=== PATIENT | male | born 1955 | race Caucasian/White ===

== ENCOUNTER 2016-09-28 16:41 | Emergency (ER) | payer MEDICARE, MEDICAID, SELFPAY | END 2016-09-28 17:28 | disposition home or self-care (01) | PROVIDERS: Emergency Provider Emergency Medicine; Family Provider Family Medicine Geriatric Medicine; Visit Provider Emergency Medicine | DX: M79.1 Myalgia (principal); E11.9 Type 2 diabetes mellitus without complications; Z79.4 Long term (current) use of insulin | CPT/HCPCS: 84484; 93005; 93041; 99282 ==

== ENCOUNTER 2017-04-12 17:56 | Emergency (ER) | payer MEDICARE, MEDICAID, SELFPAY | END 2017-04-12 19:42 | disposition home or self-care (01) | PROVIDERS: Emergency Provider Emergency Medicine; Family Provider Family Medicine Geriatric Medicine; Visit Provider Emergency Medicine | DX: J01.00 Acute maxillary sinusitis, unspecified (principal); H10.403 Unspecified chronic conjunctivitis, bilateral; I10 Essential (primary) hypertension; J44.9 Chronic obstructive pulmonary disease, unspecified; K21.9 Gastro-esophageal reflux disease without esophagitis; E11.9 Type 2 diabetes mellitus without complications; Z79.4 Long term (current) use of insulin; F41.8 Other specified anxiety disorders; Z72.0 Tobacco use | CPT/HCPCS: 96372; 99282; J2405 ==

== ENCOUNTER 2017-05-12 21:07 | Emergency (ER) | payer MEDICARE, MEDICAID, SELFPAY | END 2017-05-13 00:07 | disposition home or self-care (01) | PROVIDERS: Emergency Provider Emergency Medicine; Family Provider Family Medicine Geriatric Medicine; Visit Provider Emergency Medicine | DX: R07.89 Other chest pain (principal); N28.9 Disorder of kidney and ureter, unspecified; F17.210 Nicotine dependence, cigarettes, uncomplicated; F41.9 Anxiety disorder, unspecified; F32.9 Major depressive disorder, single episode, unspecified; N40.0 Benign prostatic hyperplasia without lower urinary tract symptoms; E11.9 Type 2 diabetes mellitus without complications; K21.9 Gastro-esophageal reflux disease without esophagitis; J44.9 Chronic obstructive pulmonary disease, unspecified; E78.5 Hyperlipidemia, unspecified; I10 Essential (primary) hypertension; Z79.01 Long term (current) use of anticoagulants; Z86.718 Personal history of other venous thrombosis and embolism; Z79.4 Long term (current) use of insulin; Z86.711 Personal history of pulmonary embolism; Z90.5 Acquired absence of kidney; Z85.46 Personal history of malignant neoplasm of prostate; Z85.528 Personal history of other malignant neoplasm of kidney; Z85.51 Personal history of malignant neoplasm of bladder; Z79.891 Long term (current) use of opiate analgesic; Z79.51 Long term (current) use of inhaled steroids; Z79.899 Other long term (current) drug therapy | CPT/HCPCS: 71010; 80053; 82550; 82553; 84484; 85025; 85610; 85730; 93005; 96374; 96375; 99284 ==

== ENCOUNTER → 2017-05-23 | Outpatient (POV) | payer MEDICARE, MEDICAID, SELFPAY | PROVIDERS: Visit Provider Internal Medicine | DX: R07.9 Chest pain, unspecified (principal); I10 Essential (primary) hypertension; I25.10 Atherosclerotic heart disease of native coronary artery without angina pectoris; E78.5 Hyperlipidemia, unspecified; N18.9 Chronic kidney disease, unspecified; R53.83 Other fatigue; R42 Dizziness and giddiness; R06.00 Dyspnea, unspecified; R94.31 Abnormal electrocardiogram [ECG] [EKG]; I45.10 Unspecified right bundle-branch block | CPT/HCPCS: 93005 ==

== ENCOUNTER → 2017-06-01 | Outpatient (CLI) | payer MEDICARE, MEDICAID, SELFPAY | PROVIDERS: Visit Provider Internal Medicine | DX: R06.02 Shortness of breath (principal); R07.9 Chest pain, unspecified; I25.10 Atherosclerotic heart disease of native coronary artery without angina pectoris; Z86.711 Personal history of pulmonary embolism; Z86.718 Personal history of other venous thrombosis and embolism | CPT/HCPCS: 36415; 71250; 82565; 84520 ==

== ENCOUNTER 2017-09-24 15:37 | Emergency (ER) | payer MEDICARE, MEDICAID, SELFPAY ==
[2017-09-24 15:39] VITALS: BP 147/84; PULSE 76; PULSE 79; RESP 22; TEMP 36.7; O2SAT 96; BMI 36.2
--- NOTE | 2017-09-24 15:45 | XR_ITS ---
XR chest 2V Ordering Physician: Michael Lindquist MD Patient Age: 62 years: Male HISTORY: ITS.REASON: soa TECHNIQUE: PA and lateral chest COMPARISON :Previous chest film 06/10/2015 & March 2015 FINDINGS Nothing definitely acute. Mild chronic changes bilaterally most evident towards right base. Mild elevation right hemidiaphragm with mild chronic changes most evident at the right base similar to 2015 when differences in technique are considered Heart, aleisha and mediastinal structures stable minimal scarring at the left suprahilar region. Prominent marginal osteophyte mid T-spine accounts for the appearance at this region on lateral view. No pneumothorax no pleural effusion no acute findings. Pulmonary vascularity normal. IMPRESSION: Nothing definitely acute. Stable chest with mild chronic changes
--- NOTE | 2017-09-24 15:45 | [facility]H.EDSOB ---
ED Disposition Clinical Impression: COPD (chronic obstructive pulmonary disease), Tobacco abuse, CAD (coronary artery disease), Diabetes, Renal insufficiency, Chronic renal failure, Leg edema Disposition: Home, Self-Care Condition on Discharge: Fair Additional Instructions: 1- stop smoking. 2- use combivent inhaler. 3- start seeing Dr Snell the refinery operator helper cracking unit. 4- return if not better. 5- see Dr James in AM for a final x ray report and a recheck. 6- resuime lasix 40 mg as we discussed . 7- follow up with the director equipment. Prescriptions: Ipratropium/Albuterol Sulfate [Combivent Respimat Inh] 1 puff IH Q12 #1 inh Referrals: Purvi James [Primary Care Provider] - - Critical Care Critical Care Time: No Attestation: On , the high probability of a clinically significant, sudden or life threatening deterioration of the following system(s) required my full and direct attention, intervention and personal management. The time I documented below is in addition to time spent performing reported procedures but includes the following listed in this critical care notation. Medical Decision Making Vital Signs: 09/24/17 15:39 09/24/17 15:54 09/24/17 17:46 Temperature 98.1 F Temperature Source Oral Pulse Rate 76 89 Pulse Rate [Right Radial] 76 Respiratory Rate 22 Blood Pressure [Right Arm] 147/84 Blood Pressure Mean [Right Arm] 105 Blood Pressure Source [Right Arm] Automatic Cuff Blood Pressure Position [Right Arm] Sitting 02 Sat by Pulse Oximetry 96 - Lab Data Lab Results 09/24/17 15:52: WBC 5.1, RBC 4.38 L, Hgb 13.5 L, Hct 40.0 L, MCV 91.3, MCH 30.8, MCHC 33.7, RDW 13.4, Plt Count 104 L, MPV 8.9, Neut % (Auto) 69.9, Lymph % (Auto) 18.9, [place] % (Auto) 7.6, Eos % (Auto) 2.9, Baso % (Auto) 0.7, Neut # (Auto) 3.6, Lymph # (Auto) 1.0, [place] # (Auto) 0.4, Eos # (Auto) 0.2, Baso # (Auto) 0.0 09/24/17 15:52: Sodium 139, Potassium 4.5, Chloride 107, Carbon Dioxide 27, Anion Gap 9.5, BUN 17, Creatinine 2.54 H, Estimated Creat Clear 55, Estimated GFR 26 L, Est GFR ( Amer) 31 L, Glucose 148 H, Calcium 7.9 L, Total Bilirubin 0.4, AST 7 L, ALT 20, Alkaline Phosphatase 46, Troponin I < 0.02, Total Protein 6.0 L, Albumin 2.6 L, Globulin 3.4 H, Albumin/Globulin Ratio 0.8 L 09/24/17 15:52: B-Natriuretic Peptide 210 H Result diagrams: 09/24/17 15:52 09/24/17 15:52 Orders (Tests/Meds): ED MEDICATIONS Discontinued Medications Generic Name Dose Route Start Last Admin Trade Name Freq PRN Reason Stop Dose Admin Albuterol/Ipratropium 3 ml 09/24/17 16:00 09/24/17 15:52 Duoneb 3ml Neb IH 10/24/17 15:59 3 ml Q1H ALBERTO Administration Furosemide 20 mg 09/24/17 17:43 09/24/17 17:51 Lasix 20mg/2ml Vial IV 09/24/17 17:44 20 mg ONCE ONE Administration Methylprednisolone Sodium Succinate 125 mg 09/24/17 15:50 09/24/17 16:15 Solu-Medrol 125mg/2ml Vial IV 09/24/17 15:51 125 mg ONCE ONE Administration ORDERS Category Date Time Status XR chest 2V Stat Exams 09/24/17 15:45 Taken - Radiology Data #1 Image(s): Chest Image Reviewed: Yes I reviewed the patient's radiology image Preliminary Findings: Abnormal (Pulmonary vascular congestion. ) - Fabián Inquiry Pt receiving controlled substance: No Fabián was queried for this patient: No Resp/SOB HPI - General Stated Complaint: SOA - History of Present Illness 62 years old 40 years smoker with history of diabetes and coronary artery disease. He developed upper respiratory tract infection in the form of runny nose and a nonproductive cough. He presented to the ED with 2 days history of shortness of breath with no chest pain no palpitations no nausea or vomiting. He denies having fever or chills. He is on xalerto for anticoagulation. Patient reports out of Lasix and has not taken his medications lately. The patient thought that he ran out of Lasix I reviewed his medication and he
--- NOTE | 2017-09-24 15:48 | ED_ITS ---
ED Disposition Clinical Impression: COPD (chronic obstructive pulmonary disease), Tobacco abuse, CAD (coronary artery disease), Diabetes, Renal insufficiency, Chronic renal failure, Leg edema Disposition: Home, Self-Care Condition on Discharge: Fair Additional Instructions: 1- stop smoking. 2- use combivent inhaler. 3- start seeing Dr Snell the assistant signal maintainer. 4- return if not better. 5- see Dr James in AM for a final x ray report and a recheck. 6- resuime lasix 40 mg as we discussed . 7- follow up with the fuel tank sealer and tester. Prescriptions: Ipratropium/Albuterol Sulfate [Combivent Respimat Inh] 1 puff IH Q12 #1 inh Referrals: Purvi James [Primary Care Provider] - - Critical Care Critical Care Time: No Attestation: On , the high probability of a clinically significant, sudden or life threatening deterioration of the following system(s) required my full and direct attention, intervention and personal management. The time I documented below is in addition to time spent performing reported procedures but includes the following listed in this critical care notation. Medical Decision Making Vital Signs: 09/24/17 15:39 09/24/17 15:54 09/24/17 17:46 Temperature 98.1 F Temperature Source Oral Pulse Rate 76 89 Pulse Rate [Right Radial] 76 Respiratory Rate 22 Blood Pressure [Right Arm] 147/84 Blood Pressure Mean [Right Arm] 105 Blood Pressure Source [Right Arm] Automatic Cuff Blood Pressure Position [Right Arm] Sitting 02 Sat by Pulse Oximetry 96 - Lab Data Lab Results 09/24/17 15:52: WBC 5.1, RBC 4.38 L, Hgb 13.5 L, Hct 40.0 L, MCV 91.3, MCH 30.8 , MCHC 33.7, RDW 13.4, Plt Count 104 L, MPV 8.9, Neut % (Auto) 69.9, Lymph % ( Auto) 18.9, [place] % (Auto) 7.6, Eos % (Auto) 2.9, Baso % (Auto) 0.7, Neut # (Auto ) 3.6, Lymph # (Auto) 1.0, [place] # (Auto) 0.4, Eos # (Auto) 0.2, Baso # (Auto) 0.0 09/24/17 15:52: Sodium 139, Potassium 4.5, Chloride 107, Carbon Dioxide 27, Anion Gap 9.5, BUN 17, Creatinine 2.54 H, Estimated Creat Clear 55, Estimated GFR 26 L, Est GFR ( Amer) 31 L, Glucose 148 H, Calcium 7.9 L, Total Bilirubin 0.4, AST 7 L, ALT 20, Alkaline Phosphatase 46, Troponin I < 0.02, Total Protein 6.0 L, Albumin 2.6 L, Globulin 3.4 H, Albumin/Globulin Ratio 0.8 L 09/24/17 15:52: B-Natriuretic Peptide 210 H Result diagrams: 09/24/17 15:52 09/24/17 15:52 Orders (Tests/Meds): ED MEDICATIONS Discontinued Medications Generic Name Dose Route Start Last Admin Trade Name Freq PRN Reason Stop Dose Admin Albuterol/Ipratropium 3 ml 09/24/17 16:00 09/24/17 15:52 Duoneb 3ml Neb IH 10/24/17 15:59 3 ml Q1H ALBERTO Administration Furosemide 20 mg 09/24/17 17:43 09/24/17 17:51 Lasix 20mg/2ml Vial IV 09/24/17 17:44 20 mg ONCE ONE Administration Methylprednisolone Sodium Succinate 125 mg 09/24/17 15:50 09/24/17 16:15 Solu-Medrol 125mg/2ml Vial IV 09/24/17 15:51 125 mg ONCE ONE Administration ORDERS Category Date Time Status XR chest 2V Stat Exams 09/24/17 15:45 Taken - Radiology Data #1 Image(s): Chest Image Reviewed: Yes I reviewed the patient's radiology image Preliminary Findings: Abnormal (Pulmonary vascular congestion. ) - Fabián Inquiry Pt receiving controlled substance: No
[2017-09-24 15:54] VITALS: PULSE 74; PULSE 76
--- NOTE | 2017-09-24 15:58 | PC.NURSE ---
rt at bedside giving breathing treatment
[2017-09-24 16:08] LABS: Basophils % 0.7 % (0.1-2.0); Eosinophils # 0.2 K/mm3 (0.0-0.4); Eosinophils % 2.9 % (0.1-12.0); Hemoglobin 13.5 g/dL (14.1-18.0); Lymphocytes % 18.9 K/mm3 (10-50); Mean Corpuscular HGB Conc 33.7 g/dL (31.8-35.4); Mean Corpuscular Hemoglobin 30.8 pg (27.0-31.2); Mean Corpuscular Volume 91.3 fl (80-94); Mean Platelet Volume 8.9 fl (7.4-10.4); Monocytes # 0.4 K/mm3 (0.1-1.0); Monocytes % 7.6 % (1.7-9.3); Neutrophils # 3.6 K/mm3 (1.8-7.8); Neutrophils % 69.9 % (37.0-80.0); Platelet Count 104 K/mm3 (142-424); Red Blood Count 4.38 M/mm3 (4.60-6.20); Red Cell Distribution Width 13.4 % (11.5-17.5); White Blood Count 5.1 K/mm3 (4.8-10.8)
[2017-09-24 16:18] LABS: Alanine Aminotransferase 20 U/L (12-78); Albumin Level 2.6 gm/dL (3.4-5.0); Albumin/Globulin Ratio 0.8 (1.1-1.8); Alkaline Phosphatase 46 U/L (46-116); Anion Gap 9.5 mEq/L (5-15); Aspartate Amino Transferase 7 U/L (15-37); Bilirubin,Total 0.4 mg/dL (0.2-1.0); Blood Urea Nitrogen 17 mg/dL (7-18); Calcium 7.9 mg/dL (8.5-10.1); Carbon Dioxide 27 mmol/L (21.0-32.0); Chloride 107 mmol/L (98-107); Creatinine Clearance Estimated 55 mL/min (0-300); Creatinine,Serum 2.54 mg/dL (0.70-1.30); Estimated Glomerular Filt Rate 26 ml/min (>60); GFR (African American) 31 ML/MIN (>60); Globulin 3.4 gm/dl (1.3-3.2); Glucose 148 mg/dL (74-106); Potassium 4.5 mmoL/L (3.5-5.1); Sodium 139 mmol/L (136-145); Troponin I < 0.02 ng/ml (0.00-0.06)
[2017-09-24 17:46] VITALS: PULSE 88; PULSE 89
[2017-09-24 18:13] VITALS: BP 147/84; PULSE 76; RESP 20; TEMP 36.8; O2SAT 98
== END 2017-09-24 18:20 | disposition home or self-care (01) ==
PROVIDERS: Emergency Provider Emergency Medicine; PCP Family Medicine Geriatric Medicine
DX: J44.9 Chronic obstructive pulmonary disease, unspecified (principal); F17.210 Nicotine dependence, cigarettes, uncomplicated; I25.10 Atherosclerotic heart disease of native coronary artery without angina pectoris; E11.9 Type 2 diabetes mellitus without complications; N28.9 Disorder of kidney and ureter, unspecified; R60.0 Localized edema; I10 Essential (primary) hypertension; E78.5 Hyperlipidemia, unspecified; F32.9 Major depressive disorder, single episode, unspecified; Z79.899 Other long term (current) drug therapy
CPT/HCPCS: 71046; 80053; 83880; 84484; 85025; 96374; 96375; 99283

== ENCOUNTER 2018-03-20 14:45 | Inpatient (IN) ==
--- NOTE | 2018-03-20 14:54 | Emergency Department Note ---
ED Disposition Clinical Impression: Dehydration, Generalized weakness Disposition: Still a Patient Condition on Discharge: Fair Referrals: Purvi James [Primary Care Provider] - - Critical Care Critical Care Time: No Attestation: On , the high probability of a clinically significant, sudden or life threatening deterioration of the following system(s) required my full and direct attention, intervention and personal management. The time I documented below is in addition to time spent performing reported procedures but includes the following listed in this critical care notation. Medical Decision Making - Fabián Inquiry Pt receiving controlled substance: No Vital Signs: 03/20/18 14:54 03/20/18 15:04 03/20/18 15:08 Temperature 98.7 F Temperature Source Oral Pulse Rate [Left Radial] 71 75 Pulse Rate [Orthostatic Lying Right Radial] 71 Pulse Rate [Orthostatic Sitting Right Radial] 72 Respiratory Rate 20 20 Blood Pressure [Orthostatic Lying Right Arm] 106/64 Blood Pressure [Orthostatic Sitting Right Arm] 113/64 Blood Pressure [Right Arm] 107/60 118/64 Blood Pressure Mean [Right Arm] 75 82 Blood Pressure Source [Right Arm] Automatic Cuff Automatic Cuff Blood Pressure Position [Right Arm] Sitting Sitting 02 Sat by Pulse Oximetry 96 96 Oxygen Delivery Method Room Air 03/20/18 16:11 Temperature Temperature Source Pulse Rate [Left Radial] 69 Pulse Rate [Orthostatic Lying Right Radial] Pulse Rate [Orthostatic Sitting Right Radial] Respiratory Rate 20 Blood Pressure [Orthostatic Lying Right Arm] Blood Pressure [Orthostatic Sitting Right Arm] Blood Pressure [Right Arm] 104/61 Blood Pressure Mean [Right Arm] 75 Blood Pressure Source [Right Arm] Automatic Cuff Blood Pressure Position [Right Arm] Sitting 02 Sat by Pulse Oximetry 96 Oxygen Delivery Method - Lab Data Lab Results 03/20/18 15:00: WBC 6.8, RBC 3.77 L, Hgb 11.6 L, Hct 33.9 L, MCV 89.8, MCH 30.8 , MCHC 34.3, RDW 14.3, Plt Count 161, MPV 7.9, Neut % (Auto) 74.7, Lymph % (Auto ) 16.3, [place] % (Auto) 5.9, Eos % (Auto) 2.4, Baso % (Auto) 0.8, Neut # (Auto) 5.1, Lymph # (Auto) 1.1, [place] # (Auto) 0.4, Eos # (Auto) 0.2, Baso # (Auto) 0.1 03/20/18 15:00: Sodium 141, Potassium 4.6, Chloride 107, Carbon Dioxide 23, Anion Gap 15.6 H, BUN 45 H, Creatinine 4.96 H, Estimated Creat Clear 26, Estimated GFR 12 L*, Est GFR ( Amer) 14 L*, Glucose 133 H, Calcium 7.9 L , Troponin I < 0.02 Result diagrams: 03/20/18 15:00 03/20/18 15:00 Orders (Tests/Meds): ED MEDICATIONS Generic Name Dose Route Start Last Admin Trade Name Freq PRN Reason Stop Dose Admin Sodium Chloride 1,000 mls @ 100 mls/hr 03/20/18 15:45 03/20/18 16:10 Sod Chlor 0.9% 1000ml Bag IV 04/19/18 15:44 100 mls/hr .Q10H ALBERTO Administration Discontinued Medications Generic Name Dose Route Start Last Admin Trade Name Freq PRN Reason Stop Dose Admin Sodium Chloride 500 ml 03/20/18 15:41 03/20/18 15:57 Sod Chlor 0.9% 1000ml Bag IV 03/20/18 15:42 500 ml BOLUS ONE Administration ORDERS Category Date Time Status ECG Request by /Nse Stat Y 03/20/18 15:04 Ordered - Radiology Data #1 Image(s): Chest Image Reviewed: Yes I have reviewed radiologist's interpretation Preliminary Findings: Normal/NAD - ECG Data Tracing #1 EKG interpreted by Aakash Blackmon MD: Rhythm: sinus Rate: 72 [place]: normal Ectopy: none Conduction: normal ST Segment Changes: none T Wave Changes: none Q Waves: none No evidence of acute ischemia or injury Normal electrocardiogram - Physician Consults Physician Consulted: Davy Time: 16:10 Reason -: Admission Comment/Response: Agrees to admit the patient to the hospital. We discussed the patient's clinical information, including history, exam, laboratory and radiology results and ED course. Per hospital procedure, I will write temporary bridge inpatient orders on the patient. Specific orders requested by the admitting physician: Hydration, recheck chemistry profile in the morning General Adult HPI - General Stated complaint: dizzy Time Seen by Provider: 03/20/18 15:06 - History of Present Illness HPI narrative: Patient states that since awakening this morning he feels generally weak with no strength in his legs when he tries to stand up. He says that he gets dizzy and sees spots. Sometimes are worse with standing. He says he went to the eye doctor for a routine scheduled visit but did not stay to be examined because of his symptoms. He denies any pain including headache, chest pain, abdominal pain , back pain. States he has not recently been ill. No fever, vomiting, diarrhea , cough. No recent changes in his medications. States he was seen here for the same symptoms a couple of months ago and saw Dr. Bhatti, no cause found. - Related Data Home Medications Medication Instructions Recorded Confirmed amlodipine 10 mg tablet 10 mg PO QDAY 09/04/17 03/20/18 aspirin 81 mg tablet,delayed 81 mg PO QDAY 09/04/17 03/20/18 release carvedilol 25 mg tablet 25 mg PO BID 09/04/17 03/20/18 fluticasone 250 mcg-salmeterol 50 1 inh INHALATION BID each 09/04/17 03/20/18 mcg/dose blistr powdr for inhalation omeprazole 40 mg capsule,delayed 40 mg PO QDAY 09/04/17 03/20/18 release ranitidine 150 mg capsule 300 mg PO QDAY cap 09/04/17 03/20/18 Ergocalciferol (Vitamin D2) 50,000 unit PO DAILY 09/24/17 03/20/18 [Vitamin D2] Furosemide [Furosemide 40MG tAB] 40 mg PO DAILY 09/24/17 03/20/18 Propranolol HCl [Inderal 20mg 20 mg PO DAILY 09/24/17 03/20/18 tablet] Gabapentin [Gabapentin 300mg Cap] 300 mg PO DAILY 01/26/18 03/20/18 Hydralazine HCl [Hydralazine HCl 50 mg PO DAILY 01/26/18 03/20/18 25mg Tablet] Insulin Aspart [Novolog Flexpen] 100 unit SQ DAILY 01/26/18 03/20/18 Insulin Detemir [Levemir 100 30 unit SQ DAILY 01/26/18 03/20/18 units/mL 10mL vial] Lactobacillus Acidophilus 1 each PO DAILY 01/26/18 03/20/18 [Acidophilus Lactobacilli] Oxycodone HCl [Oxycodone (IR) 10mg 10 mg PO Q6 01/26/18 03/20/18 Tab] Pantoprazole Sodium [Pantoprazole 40 mg PO DAILY 01/26/18 03/20/18 20mg Tab] Ranolazine [Ranexa 500mg ER tablet] 1,000 mg PO DAILY 01/26/18 03/20/18 Rivaroxaban [Xarelto 10mg tablet] 10 mg PO DAILY 01/26/18 03/20/18 Valacyclovir HCl [Valacyclovir] 500 mg PO BID 01/26/18 03/20/18 Venlafaxine HCl [Venlafaxine HCl 75 mg PO DAILY 01/26/18 03/20/18 ER] Ipratropium/Albuterol Sulfate 1 puff IH Q12 02/13/18 03/20/18 [Combivent Respimat Inh] Previous Rx's Medication Instructions Recorded ranolazine ER 1,000 mg 1,000 mg PO BID #60 tab 11/07/17 tablet,extended release,12 hr isosorbide mononitrate ER 120 mg 120 mg PO DAILY #30 tab 03/09/18 tablet,extended release 24 hr Allergies Allergy/AdvReac Type Severity Reaction Status Date / Time No Known Allergies Allergy Verified 02/13/18 07:22 [facility] History I have reviewed the patient's past medical history: Yes Medical History: Reports:: Cancer, Chronic Obstructive Pulmonary Disease (COPD) , Coronary Artery Disease, Depression, Diabetes Mellitus Type 2, Hyperlipidemia , Hypertension, Lung Disease (COPD) Denies:: Diabetes Mellitus Type 1, Internal Pacemaker, Seizures Laterality Cases: Left: Other, Right: Arthroscopy Shoulder Other Surgeries: Yes: Other (Back Sx, LHC-2 stents, R kidney removed, Partial L kidney removed). No: Pacemaker - Social History Smoking Status: Current every day smoker Tobacco Type: cigarettes # Packs/Day (cigarettes): 2 Alcohol Intake: former Alcohol Intake Frequency:: 3 or more drinks per day - Psychiatric History Pschychiatric History:: Reports:: Depression Family Hx:: Heart Attack, Coronary Artery Disease ROS Obtained: Yes All systems reviewed & no additional complaints - Constitutional Constitutional: Reports fatigue, Denies fever(s), Denies poor appetite, Reports weakness - Eyes Eyes: Reports as per HPI - Cardiovascular Cardiovascular: Denies chest pain - Respiratory Respiratory: No cough, No dyspnea - Gastrointestinal Gastrointestingal: Denies: abdominal pain, diarrhea, vomiting - Musculoskeletal Musculoskeletal: Denies back pain, Denies neck pain - Neurologic Neurologic: Denies headache(s), Reports weakness (Generalized) Physical Exam - General General appearance: alert, in no apparent distress - Head Head exam: atraumatic, normocephalic, normal inspection - Eye Eye exam: Present: normal appearance, PERRL, EOMI - ENT ENT exam: Present: normal exam, normal oropharynx, mucous membranes moist, TM's normal bilaterally, normal external ear exam - Neck Neck exam: Present: normal inspection, full ROM, trachea midline. Absent: meningismus, lymphadenopathy - Chest Chest inspection: Present: normal inspection, symmetric chest wall rise. Absent : tenderness - Respiratory Respiratory exam: Present: normal lung sounds bilaterally. Absent: respiratory distress - Cardiovascular Cardiovascular exam: Present: regular rate, normal rhythm. Absent: JVD - Abdominal Exam Abdominal exam: Present: soft, normal bowel sounds. Absent: distention, tenderness, guarding - Extremities Exam Extremities exam: Present: normal inspection, full ROM, normal capillary refill. Absent: calf tenderness - Back Exam Back exam: Present: normal inspection. Absent: tenderness - Neurological Exam Neurological exam: Present: alert, oriented X3, CN II-XII intact. Absent: motor sensory deficit - Psychiatric Psychiatric exam: Present: normal affect, normal mood - Skin Skin exam: Present: warm, dry, intact, normal color
[2018-03-20 15:20] LABS: Basophils # 0.1 K/mm3 (0-0.2); Basophils % 0.8 % (0.1-2.0); Eosinophils # 0.2 K/mm3 (0.0-0.4); Eosinophils % 2.4 % (0.1-12.0); Hematocrit 33.9 % (42.0-52.0); Hemoglobin 11.6 g/dL (14.1-18.0); Lymphocytes # 1.1 K/mm3 (0.7-4.5); Lymphocytes % 16.3 K/mm3 (10-50); Mean Corpuscular HGB Conc 34.3 g/dL (31.8-35.4); Mean Corpuscular Hemoglobin 30.8 pg (27.0-31.2); Mean Corpuscular Volume 89.8 fl (80-94); Mean Platelet Volume 7.9 fl (7.4-10.4); Monocytes # 0.4 K/mm3 (0.1-1.0); Monocytes % 5.9 % (1.7-9.3); Neutrophils # 5.1 K/mm3 (1.8-7.8); Neutrophils % 74.7 % (37.0-80.0); Platelet Count 161 K/mm3 (142-424); Red Blood Count 3.77 M/mm3 (4.60-6.20); Red Cell Distribution Width 14.3 % (11.5-17.5); White Blood Count 6.8 K/mm3 (4.8-10.8)
[2018-03-20 15:30] LABS: Anion Gap 15.6 mEq/L (5-15); Blood Urea Nitrogen 45 mg/dL (7-18); Calcium 7.9 mg/dL (8.5-10.1); Carbon Dioxide 23 mmol/L (21.0-32.0); Chloride 107 mmol/L (98-107); Glucose 133 mg/dL (74-106); Potassium 4.6 mmoL/L (3.5-5.1); Sodium 141 mmol/L (136-145)
[2018-03-21 06:08] LABS: Anion Gap 9.7 mEq/L (5-15); Calcium 7.4 mg/dL (8.5-10.1); Potassium 4.7 mmoL/L (3.5-5.1)
--- NOTE | 2018-03-21 07:19 | Pharmacy Consult Notes ---
[facility] Pharmacy VTE Monitoring - Patient Demographics Admission date: 03/20/18 Report Date: 03/21/18 Time: 07:19 Allergies/Adverse Reactions: Patient Allergies No Known Allergies Allergy (Verified 02/13/18 07:22) Height: 1.91 m Weight: 133.101 kg Patient Problems: Current Active Problems Dehydration (Acute) Generalized weakness (Acute) - VTE Risk Labs: VTE Related Lab Results Hgb 11.6 g/dL (14.1-18.0) L 03/20/18 15:00 Hct 33.9 % (42.0-52.0) L 03/20/18 15:00 Plt Count 161 K/mm3 (142-424) 03/20/18 15:00 BUN 44 mg/dL (7-18) H 03/21/18 05:15 Creatinine 4.87 mg/dL (0.70-1.30) H 03/21/18 05:15 Estimated Creat Clear 29 mL/min (0-300) 03/21/18 05:15 - Prophylaxis VTE Prophylaxis Ordered?: Yes Types of VTE Prophylaxis: TEDS Knee High, Pharmacological Location of Applied Device: Bilateral Lower Extremeties Pharmacologic Type: Other (XARELTO) - VTE Diagnosis Confirmed Treatment or plan recommended: Continue Current Treatment
--- NOTE | 2018-03-21 09:22 | History & Physical Report ---
*Admission Date: 03/20/18 *Chief complaint: dizzyness *History of present illness: this wm with acute onset of dizzyness and dec use of upper ext and was seen in the ed tient states that since awakening this morning he feels generally weak with no strength in his legs when he tries to stand up. He says that he gets dizzy and sees spots. Sometimes are worse with standing. He says he went to the eye doctor for a routine scheduled visit but did not stay to be examined because of his symptoms. He denies any pain including headache, chest pain, abdominal pain, back pain. States he has not recently been ill. No fever, vomiting, diarrhea, cough. No recent changes in his medicati [facility] History I have reviewed the patient's past medical history: Yes Medical History: Reports:: Cancer, Chronic Obstructive Pulmonary Disease (COPD) , Coronary Artery Disease, Depression, Diabetes Mellitus Type 2, Hyperlipidemia , Hypertension, Lung Disease (COPD) Denies:: Diabetes Mellitus Type 1, Internal Pacemaker, Seizures Laterality Cases: Left: Other, Right: Arthroscopy Shoulder Other Surgeries: Yes: Other (Back Sx, LHC-2 stents, R kidney removed, Partial L kidney removed). No: Pacemaker - *Social History Smoking Status: Current every day smoker Tobacco Type: cigarettes # Packs/Day (cigarettes): 1 Alcohol Intake: never Alcohol Intake Frequency:: 3 or more drinks per day Occupational Status: disabled - Psychiatric History Expresses thoughts of harming self/others: None Suicide Plan Description: No Plan Pschychiatric History:: Reports:: Depression *Family Hx:: Heart Attack, Coronary Artery Disease Review of Systems - Review of Systems Review of systems:: pertinent systems reviewed and negative unless documented below - Constitutional Denies fever(s) - Eyes Denies change in vision - ENT Denies sore throat - *Cardiovascular Reports chest pain - *Respiratory Denies cough, Denies coughing up blood - *Gastrointestinal Denies abdominal pain - *Genitourinary Denies blood in urine - *Musculoskeletal Reports joint pain - Integumentary/Breasts Denies rash - *Neurologic Reports tingling, Reports weakness (Generalized), Denies headache(s) - Psychiatric Denies anxiety Meds Home Medications Medication Instructions Recorded Confirmed Type amlodipine 10 mg tablet 10 mg PO DAILY 09/04/17 03/21/18 History carvedilol 25 mg tablet 25 mg PO BID 09/04/17 03/20/18 History Ergocalciferol (Vitamin D2) 50,000 unit PO WEEKLY 09/24/17 03/21/18 History [Vitamin D2] Furosemide [Furosemide 40MG tAB] 40 mg PO DAILY 09/24/17 03/20/18 History Propranolol HCl [Inderal 20mg 20 mg PO BID 09/24/17 03/21/18 History tablet] Gabapentin [Gabapentin 300mg Cap] 300 mg PO BID 01/26/18 03/21/18 History Hydralazine HCl [Hydralazine HCl 50 mg PO TID 01/26/18 03/21/18 History 25mg Tablet] Insulin Aspart [Novolog Flexpen] 0 unit SQ DAILY 01/26/18 03/21/18 History Insulin Detemir [Levemir 100 30 unit SQ DAILY 01/26/18 03/20/18 History units/mL 10mL vial] Lactobacillus Acidophilus 1 each PO DAILY 01/26/18 03/20/18 History [Acidophilus Lactobacilli] Pantoprazole Sodium [Pantoprazole 40 mg PO DAILY 01/26/18 03/20/18 History 20mg Tab] Ranolazine [Ranexa 500mg ER tablet] 1,000 mg PO BID 01/26/18 03/21/18 History Venlafaxine HCl [Venlafaxine HCl 75 mg PO DAILY 01/26/18 03/20/18 History ER] Acetaminophen 650 mg PO Q4HP PRN 03/21/18 03/21/18 History Albuterol Sulfate [Albuterol HFA 2 puffs IH Q4HP PRN 03/21/18 03/21/18 History Inhaler] Aspirin [Aspirin 81mg chewable 81 mg PO DAILY 03/21/18 03/21/18 History tab] Calcitriol [Calcitriol 0.25mcg 0.25 mcg PO MOWEFR 03/21/18 03/21/18 History Capsule] Cyclobenzaprine HCl 10 mg PO BIDP PRN 03/21/18 03/21/18 History [Cyclobenzaprine 10mg Tab] Fluticasone Propionate [Flonase 2 spr NS DAILY 03/21/18 03/21/18 History 50mcg nasal spray 16gm] Ipratropium/Albuterol Sulfate 1 puff IH Q12H 03/21/18 03/21/18 History [Combivent Respimat Inh] Isosorbide Mononitrate [Isosorbide 120 mg PO DAILY 03/21/18 03/21/18 History Mononitrate ER] Lactulose [Lactulose 10gm/15ml 15 ml PO Q12H 03/21/18 03/21/18 History Oral Soln] Nicotine [Nicotine Patch 21 mg TD DAILY 03/21/18 03/21/18 History 21mg/24hrs] Oxycodone HCl/Acetaminophen 1 tab PO TIDP PRN 03/21/18 03/21/18 History [Oxycodone W/Apap 325mg Tablet] Potassium Chloride 20 meq PO DAILY 03/21/18 03/21/18 History Rivaroxaban [Xarelto] 20 mg PO DAILY 03/21/18 03/21/18 History Tamsulosin HCl [Flomax 0.4mg 0.8 mg PO HS 03/21/18 03/21/18 History capsule] cloNIDine HCl [cloNIDine 0.1mg 0.1 mg PO BID 03/21/18 03/21/18 History Tablet] Allergies Allergy/AdvReac Type Severity Reaction Status Date / Time No Known Allergies Allergy Verified 02/13/18 07:22 Exam Vital signs and Labs for Last 24 Hours: Temp Pulse Resp BP Pulse Ox 98.0 F 72 20 136/77 91 L 03/21/18 07:32 03/21/18 07:32 03/21/18 07:32 03/21/18 07:32 03/21/18 07:32 Laboratory Results - last 24 hr 03/20/18 15:00: WBC 6.8, RBC 3.77 L, Hgb 11.6 L, Hct 33.9 L, MCV 89.8, MCH 30.8 , MCHC 34.3, RDW 14.3, Plt Count 161, MPV 7.9, Neut % (Auto) 74.7, Lymph % (Auto ) 16.3, [place] % (Auto) 5.9, Eos % (Auto) 2.4, Baso % (Auto) 0.8, Neut # (Auto) 5.1, Lymph # (Auto) 1.1, [place] # (Auto) 0.4, Eos # (Auto) 0.2, Baso # (Auto) 0.1 03/20/18 15:00: Sodium 141, Potassium 4.6, Chloride 107, Carbon Dioxide 23, Anion Gap 15.6 H, BUN 45 H, Creatinine 4.96 H, Estimated Creat Clear 26, Estimated GFR 12 L*, Est GFR ( Amer) 14 L*, Glucose 133 H, Calcium 7.9 L , Troponin I < 0.02 03/20/18 17:45: POC Glucose 156 H 03/20/18 21:44: POC Glucose 120 H 03/21/18 05:15: Sodium 138, Potassium 4.7, Chloride 107, Carbon Dioxide 26, Anion Gap 9.7, BUN 44 H, Creatinine 4.87 H, Estimated Creat Clear 29, Estimated GFR 12 L*, Est GFR ( Amer) 15 L*, Glucose 116 H, Calcium 7.4 L 03/21/18 05:19: POC Glucose 115 H I & O for Last 24 hours: Intake & Output 03/18/18 03/19/18 03/20/18 03/21/18 11:59 11:59 11:59 11:59 Intake Total 3156 / 3156 Output Total 450 / 450 Balance 2706 / 2706 Weight 293 lb 7 oz - Constitutional no acute distress, obese - *Routine HEENT Exam Head: Present: normocephalic Eye: Present: EOMI, PERRL ENT: Absent: mucous membranes dry - *Routine Neck Exam Present: supple - *Routine Respiratory Exam Present: CTA bilaterally - *Routine Cardiovascular Exam Present: RRR, murmur - *Routine Abdominal Exam Present: soft - *Routine Extremities Exam Absent: calf tenderness - *Routine Skin Exam Present: intact - *Routine Neurological Exam Present: alert, oriented X3, CN II-XII intact - Routine Psychiatric Exam Present: normal affect H&P: Result - Labs Labs: Short CBC 03/20/18 Range/Units 15:00 WBC 6.8 (4.8-10.8) K/mm3 Hgb 11.6 L (14.1-18.0) g/dL Hct 33.9 L (42.0-52.0) % Plt Count 161 (142-424) K/mm3 BMP 03/20/18 03/21/18 15:00 05:15 Sodium 141 138 Potassium 4.6 4.7 Chloride 107 107 Carbon Dioxide 23 26 BUN 45 H 44 H Creatinine 4.96 H 4.87 H Glucose 133 H 116 H Calcium 7.9 L 7.4 L Cardiac Enzymes 03/20/18 Range/Units 15:00 Troponin I < 0.02 (0.00-0.06) ng/ml Assessment and Plan (1) CAD (coronary artery disease) Current visit: No Status: Acute Category: Medical Code(s): I25.10 - Atherosclerotic heart disease of [place] coronary artery without angina pectoris (2) Diabetes Current visit: No Status: Acute Category: Medical Code(s): E11.9 - Type 2 diabetes mellitus without complications
--- NOTE | 2018-03-21 14:04 | Consult Report ---
History of Present Illness Consult date: 03/21/18 Requesting physician: Mitch Bhatti Chief complaint: Nausea Additional Medical History:: 1. CAD A. Cardiac cath, 05/2017, with DUNCAN to proximal LAD lesion with possible spontaneous dissection which produced slow flow and an ischemic response to adenosine with an FFR index of 0.79. Successful stenting of large posterior descending artery off the right coronary artery, normal EF, normal to mildly elevated LVEDP. ASA and Brilinta started. B. Recurrent angina for which patient treated with isosorbide and ranexa with questionable improvement. 2. History of right nephrectomy (about 2011 due to cancer) and partial left nephrectomy (about 2012 for nodule/cyst) A. Chronic kidney disease stage III-IV, followed by [facility] in [place], [place]. 3. History of bladder cancer 4. History of prostate cancer 5. History of DVTs and pulmonary emboli for which the patient has previously had a Umm filter placed and then removed A. Chronic Coumadin therapy B. CT of the chest with no evidence of pulmonary embolus. Mild scarring noted in the right middle lobe. No evidence of interstitial lung disease. An 18 mm nodule in the left thyroid noted 6. Tobacco use, continued A. COPD 7. Family history of early coronary artery disease 8. Chronic lower extremity edema 9. Diabetes mellitus type 2 10. Right bundle branch block on EKG History of present illness: Cardiology consulted for consideration of discontinuation of Ranexa. Patient was last seen in our office in June 2017. 62-year-old patient relates increasing episodes of nausea and dizziness recently with brief episodes of chest pain that last 5-10 min. Known CAD as noted above but has not followed up in our office due to insurance reasons. He has been seeing a [facility] in [place], [place] with last visit reportedly 2-3 months ago but did entail a discussion about the need for dialysis in the future. Patient does have abdominal swelling in discomfort with tenderness to palpation. He denies any discomfort with chest palpation. He does have chronic pain syndrome for which he takes chronic pain medication. Nursing reports patient complains of chest pain today for which troponin was drawn and is normal. EKG showed sinus rhythm with chronic right bundle branch block without acute ST segment changes. QTc is 487 ms. Per ER physician note: Patient states that since awakening this morning he feels generally weak with no strength in his legs when he tries to stand up. He says that he gets dizzy and sees spots. Sometimes are worse with standing. He says he went to the eye doctor for a routine scheduled visit but did not stay to be examined because of his symptoms. He denies any pain including headache, chest pain, abdominal pain , back pain. States he has not recently been ill. No fever, vomiting, diarrhea , cough. No recent changes in his medications. States he was seen here for the same symptoms a couple of months ago and saw Dr. Bhatti, no cause found [facility] History Medical History: Reports:: Cancer, Chronic Obstructive Pulmonary Disease (COPD) , Coronary Artery Disease, Depression, Diabetes Mellitus Type 2, Hyperlipidemia , Hypertension, Lung Disease (COPD) Denies:: Diabetes Mellitus Type 1, Internal Pacemaker, Seizures Laterality Cases: Left: Other, Right: Arthroscopy Shoulder Other Surgeries: Yes: Other (Back Sx, LHC-2 stents, R kidney removed, Partial L kidney removed). No: Pacemaker - *Social History Smoking Status: Current every day smoker Tobacco Type: cigarettes # Packs/Day (cigarettes): 1 Alcohol Intake: never Alcohol Intake Frequency:: 3 or more drinks per day Occupational Status: disabled - Psychiatric History Expresses thoughts of harming self/others: None Suicide Plan Description: No Plan Pschychiatric History:: Reports:: Depression *Family Hx:: Heart Attack, Coronary Artery Disease Meds Home Medications Medication Instructions Recorded Confirmed Type amlodipine 10 mg tablet 10 mg PO DAILY 09/04/17 03/21/18 History carvedilol 25 mg tablet 25 mg PO BID 09/04/17 03/20/18 History Ergocalciferol (Vitamin D2) 50,000 unit PO WEEKLY 09/24/17 03/21/18 History [Vitamin D2] Furosemide [Furosemide 40MG tAB] 40 mg PO DAILY 09/24/17 03/20/18 History Propranolol HCl [Inderal 20mg 20 mg PO BID 09/24/17 03/21/18 History tablet] Gabapentin [Gabapentin 300mg Cap] 300 mg PO BID 01/26/18 03/21/18 History Hydralazine HCl [Hydralazine HCl 50 mg PO TID 01/26/18 03/21/18 History 25mg Tablet] Insulin Aspart [Novolog Flexpen] 0 unit SQ DAILY 01/26/18 03/21/18 History Insulin Detemir [Levemir 100 30 unit SQ DAILY 01/26/18 03/20/18 History units/mL 10mL vial] Lactobacillus Acidophilus 1 each PO DAILY 01/26/18 03/20/18 History [Acidophilus Lactobacilli] Pantoprazole Sodium [Pantoprazole 40 mg PO DAILY 01/26/18 03/20/18 History 20mg Tab] Ranolazine [Ranexa 500mg ER tablet] 1,000 mg PO BID 01/26/18 03/21/18 History Venlafaxine HCl [Venlafaxine HCl 75 mg PO DAILY 01/26/18 03/20/18 History ER] Acetaminophen 650 mg PO Q4HP PRN 03/21/18 03/21/18 History Albuterol Sulfate [Albuterol HFA 2 puffs IH Q4HP PRN 03/21/18 03/21/18 History Inhaler] Aspirin [Aspirin 81mg chewable 81 mg PO DAILY 03/21/18 03/21/18 History tab] Calcitriol [Calcitriol 0.25mcg 0.25 mcg PO MOWEFR 03/21/18 03/21/18 History Capsule] Cyclobenzaprine HCl 10 mg PO BIDP PRN 03/21/18 03/21/18 History [Cyclobenzaprine 10mg Tab] Fluticasone Propionate [Flonase 2 spr NS DAILY 03/21/18 03/21/18 History 50mcg nasal spray 16gm] Ipratropium/Albuterol Sulfate 1 puff IH Q12H 03/21/18 03/21/18 History [Combivent Respimat Inh] Isosorbide Mononitrate [Isosorbide 120 mg PO DAILY 03/21/18 03/21/18 History Mononitrate ER] Lactulose [Lactulose 10gm/15ml 15 ml PO Q12H 03/21/18 03/21/18 History Oral Soln] Nicotine [Nicotine Patch 21 mg TD DAILY 03/21/18 03/21/18 History 21mg/24hrs] Oxycodone HCl/Acetaminophen 1 tab PO TIDP PRN 03/21/18 03/21/18 History [Oxycodone W/Apap 325mg Tablet] Potassium Chloride 20 meq PO DAILY 03/21/18 03/21/18 History Rivaroxaban [Xarelto] 20 mg PO DAILY 03/21/18 03/21/18 History Tamsulosin HCl [Flomax 0.4mg 0.8 mg PO HS 03/21/18 03/21/18 History capsule] cloNIDine HCl [cloNIDine 0.1mg 0.1 mg PO BID 03/21/18 03/21/18 History Tablet] Allergies Allergy/AdvReac Type Severity Reaction Status Date / Time No Known Allergies Allergy Verified 02/13/18 07:22 Review of Systems - *Cardiovascular Reports chest pain, Reports leg swelling - *Respiratory Reports shortness of breath with activity - *Neurologic Reports weakness (Generalized), Denies headache(s) Exam Vital signs and Labs for Last 24 Hours: Temp Pulse Resp BP Pulse Ox 98.0 F 72 20 136/77 91 L 03/21/18 07:32 03/21/18 07:32 03/21/18 07:32 03/21/18 07:32 03/21/18 07:32 Laboratory Results - last 24 hr 03/20/18 15:00: WBC 6.8, RBC 3.77 L, Hgb 11.6 L, Hct 33.9 L, MCV 89.8, MCH 30.8 , MCHC 34.3, RDW 14.3, Plt Count 161, MPV 7.9, Neut % (Auto) 74.7, Lymph % (Auto ) 16.3, [place] % (Auto) 5.9, Eos % (Auto) 2.4, Baso % (Auto) 0.8, Neut # (Auto) 5.1, Lymph # (Auto) 1.1, [place] # (Auto) 0.4, Eos # (Auto) 0.2, Baso # (Auto) 0.1 03/20/18 15:00: Sodium 141, Potassium 4.6, Chloride 107, Carbon Dioxide 23, Anion Gap 15.6 H, BUN 45 H, Creatinine 4.96 H, Estimated Creat Clear 26, Estimated GFR 12 L*, Est GFR ( Amer) 14 L*, Glucose 133 H, Calcium 7.9 L , Troponin I < 0.02 03/20/18 17:45: POC Glucose 156 H 03/20/18 21:44: POC Glucose 120 H 03/21/18 05:15: Sodium 138, Potassium 4.7, Chloride 107, Carbon Dioxide 26, Anion Gap 9.7, BUN 44 H, Creatinine 4.87 H, Estimated Creat Clear 29, Estimated GFR 12 L*, Est GFR ( Amer) 15 L*, Glucose 116 H, Calcium 7.4 L 03/21/18 05:19: POC Glucose 115 H 03/21/18 11:39: POC Glucose 119 H 03/21/18 12:50: Troponin I < 0.02 I & O for Last 24 hours: Intake & Output 03/19/18 03/20/18 03/21/18 03/22/18 11:59 11:59 11:59 11:59 Intake Total 3156 / 3156 Output Total 450 / 450 Balance 2706 / 2706 Weight 293 lb 7 oz Assessment and Plan (1) Dehydration Current visit: Yes Status: Acute Category: Medical Code(s): E86.0 - Dehydration (2) Generalized weakness Current visit: Yes Status: Acute Category: Medical Code(s): R53.1 - Weakness (3) CAD (coronary artery disease) Current visit: No Status: Acute Category: Medical Code(s): I25.10 - Atherosclerotic heart disease of [place] coronary artery without angina pectoris (4) COPD (chronic obstructive pulmonary disease) Current visit: No Status: Acute Category: Medical Code(s): J44.9 - Chronic obstructive pulmonary disease, unspecified (5) Chronic kidney disease Current visit: No Status: Acute Qualifiers: Chronic kidney disease stage: unspecified stage Qualified Code(s): N18.9 - Chronic kidney disease, unspecified Category: Medical Code(s): N18.9 - Chronic kidney disease, unspecified (6) Diabetes Current visit: No Status: Acute Category: Medical Code(s): E11.9 - Type 2 diabetes mellitus without complications (7) Hyperlipidemia Current visit: No Status: Acute Qualifiers: Hyperlipidemia type: unspecified Qualified Code(s): E78.5 - Hyperlipidemia , unspecified Category: Medical Code(s): E78.5 - Hyperlipidemia, unspecified (8) Hypertensive disorder Current visit: No Status: Acute Qualifiers: Hypertension type: essential hypertension Qualified Code(s): I10 - Essential (primary) hypertension Category: Medical Code(s): I10 - Essential (primary) hypertension (9) Chest pain Current visit: No Status: Acute Qualifiers: Chest pain type: unspecified Qualified Code(s): R07.9 - Chest pain, unspecified Category: Medical Code(s): R07.9 - Chest pain, unspecified - Assessment and plan all Dx Assessment and Plan for all problems:: 1. OK to stop ranexa at this time. Patient relates no significant improvement with Ranexa in the past. Continue isosorbide mononitrate 120 mg daily. 2. Will obtain an echocardiogram to evaluate left ventricular ejection fraction as well as to rule out pericardial effusion in the setting of chronic kidney disease/renal failure. 3. Patient is on maximum dose of isosorbide mononitrate plus on high-dose Norvasc and carvedilol as well as propranolol. Will stop propranolol. Continue to monitor blood pressure and pulse and increase carvedilol as needed. 4. Consider transfer to the patient's [facility] in [place] for further treatment of his renal failure.
[2018-03-21 21:37] LABS: Anion Gap 11.4 mEq/L (5-15); Calcium 7.2 mg/dL (8.5-10.1); Potassium 5.4 mmoL/L (3.5-5.1)
[2018-03-22 08:49] LABS: Basophils % 0.3 % (0.1-2.0); Eosinophils # 0.1 K/mm3 (0.0-0.4); Eosinophils % 1.3 % (0.1-12.0); Hematocrit 34.3 % (42.0-52.0); Hemoglobin 11.5 g/dL (14.1-18.0); Lymphocytes # 0.6 K/mm3 (0.7-4.5); Lymphocytes % 8.3 K/mm3 (10-50); Mean Corpuscular HGB Conc 33.4 g/dL (31.8-35.4); Mean Corpuscular Hemoglobin 30.5 pg (27.0-31.2); Mean Corpuscular Volume 91.3 fl (80-94); Mean Platelet Volume 8.7 fl (7.4-10.4); Monocytes # 0.3 K/mm3 (0.1-1.0); Monocytes % 4.1 % (1.7-9.3); Neutrophils # 6.6 K/mm3 (1.8-7.8); Platelet Count 126 K/mm3 (142-424); Red Blood Count 3.76 M/mm3 (4.60-6.20); Red Cell Distribution Width 14.3 % (11.5-17.5); White Blood Count 7.6 K/mm3 (4.8-10.8)
--- NOTE | 2018-03-22 08:53 | Progress Note ---
Subjective Date: 03/22/18 Time: 08:49 Principal diagnosis: CAD, chest pain Interval history: 62 yo WM in bed in NAD. No further chest pain episodes overnight. Preliminary echo shows normal LVEF without pericardial effusion. Complains of some muscle aches and spasms. Exam Vital signs and Labs for Last 24 Hours: Temp Pulse Resp BP Pulse Ox 98.1 F 100 H 22 152/83 86 L 03/22/18 08:00 03/22/18 08:00 03/22/18 08:00 03/22/18 08:00 03/22/18 08:00 Laboratory Results - last 24 hr 03/21/18 11:39: POC Glucose 119 H 03/21/18 12:50: Troponin I < 0.02 03/21/18 17:18: POC Glucose 113 H 03/21/18 21:11: POC Glucose 133 H 03/21/18 21:24: Sodium 139, Potassium 5.4 H, Chloride 106, Carbon Dioxide 27, Anion Gap 11.4, BUN 46 H, Creatinine 4.86 H, Estimated Creat Clear 29, Estimated GFR 12 L*, Est GFR ( Amer) 15 L*, Glucose 124 H, Calcium 7.2 L 03/22/18 06:27: POC Glucose 132 H I & O for Last 24 hours: Intake & Output 03/19/18 03/20/18 03/21/18 03/22/18 11:59 11:59 11:59 11:59 Intake Total 3156 / 3156 3390 / 3390 Output Total 450 / 450 1775 / 1775 Balance 2706 / 2706 1615 / 1615 Weight 293 lb 7 oz 293 lb 6.999 oz - *Routine Respiratory Exam Present: decreased breath sounds - *Routine Cardiovascular Exam Present: RRR Progress Note: A&P (1) CAD (coronary artery disease) Status: Acute Current Visit: No (2) Diabetes Status: Acute Current Visit: No (3) Chronic kidney disease Status: Acute Current Visit: No (4) Hypertensive disorder Status: Acute Current Visit: No (5) Tobacco dependence syndrome Status: Acute Current Visit: No Assessment and Plan for All Diagnoses:: Recommend increasing coreg to 37.5 mg BID for BP management. AM labs pending. No further cardiac workup at this time.
[2018-03-22 08:58] LABS: Albumin Level 2.7 gm/dL (3.4-5.0); Albumin/Globulin Ratio 0.9 (1.1-1.8); Anion Gap 12.3 mEq/L (5-15); Bilirubin,Total 0.3 mg/dL (0.2-1.0); Calcium 7.2 mg/dL (8.5-10.1); Total Protein,Serum 5.7 gm/dL (6.4-8.2)
[2018-03-22 09:04] LABS: Potassium 6.3 mmoL/L (3.5-5.1)
[2018-03-22 09:47] LABS: Eosinophils % 2 % (0-3); Lymphocytes % 6 % (10-50); Monocytes % 3 % (2-9); Neutrophils % 89 % (42-76); Total Cells Counted 100
[2018-03-22 10:32] LABS: ABG Base Excess -5.7 mmol/L (-2.4-2.3); ABG HCO3 22.3 mmhg (22.0-26.0); ABG Oxygen Saturation 87 % (90-100); ABG PO2 55.5 mmhg (80-100); ABG TCO2 24.1 mmhg (23-27)
[2018-03-22 10:36] LABS: Allen's Test Acceptable; Oxygen 28% %
[2018-03-22 10:38] LABS: ABG PCO2 58.2 mmhg (35.0-45.0)
[2018-03-22 12:19] LABS: Anion Gap 12.5 mEq/L (5-15); Calcium 7.3 mg/dL (8.5-10.1); Potassium 5.5 mmoL/L (3.5-5.1)
[2018-03-22 13:09] LABS: Microscopic, Urine URINE MICROSCOPIC (MICROSCOPIC)
--- NOTE | 2018-03-22 13:23 | Discharge Summary ---
General - General Admission date:: 03/22/18 Discharge date: 03/22/18 HPI HPI: this wm with acute onset of dizzyness and dec use of upper ext and was seen in the ed tient states that since awakening this morning he feels generally weak with no strength in his legs when he tries to stand up. He says that he gets dizzy and sees spots. Sometimes are worse with standing. He says he went to the eye doctor for a routine scheduled visit but did not stay to be examined because of his symptoms. He denies any pain including headache, chest pain, abdominal pain, back pain. States he has not recently been ill. No fever, vomiting, diarrhea, cough. No recent changes in his medicati Hospital Course Hospital Course: chest x ray- vascular crowding Creatinine 4.86 today 4.67 Potassium 6.3 Increase in shortness of breath and respiratory failure with a blood gas of pH 7.20,C02 58,P02 55, bicarb 22 base excess 5.7 and O2 saturations 87% on 2 report called to [facility] Dr. Shlomo Núñez accepted patient for ICU patient will be intubated for stable and management of airway. Objective Vital signs: Temp Pulse Resp BP Pulse Ox 99.6 F 87 16 132/89 96 03/22/18 13:00 03/22/18 13:00 03/22/18 13:00 03/22/18 13:00 03/22/18 13:00 mild distress - *Routine HEENT Exam Head: Present: normocephalic Eye: Present: PERRL ENT: Present: mucous membranes moist - *Routine Respiratory Exam Present: CTA bilaterally, respiratory distress - *Routine Cardiovascular Exam Present: RRR - *Routine Abdominal Exam Present: soft, normoactive bowel sounds - *Routine Extremities Exam Present: full ROM - *Routine Skin Exam Present: intact - *Routine Neurological Exam Present: alert, CN II-XII intact, tremors - Routine Psychiatric Exam Present: normal affect Results Labs on day of discharge: Labs from last 24 hours 03/22/18 03/22/18 03/22/18 12:02 11:30 09:16 WBC RBC Hgb Hct MCV MCH MCHC RDW Plt Count MPV Neut % (Auto) Lymph % (Auto) Patrick % (Auto) Eos % (Auto) Baso % (Auto) Neut # (Auto) Lymph # (Auto) Patrick # (Auto) Eos # (Auto) Baso # (Auto) Total Counted Neutrophils % (Manual) Lymphocytes % (Manual) Monocytes % (Manual) Eosinophils % (Manual) Platelet Estimate Specimen Source Right radial O2 % 28% ABG pH 7.20 L* ABG pCO2 58.2 H ABG pO2 55.5 L ABG HCO3 22.3 ABG Total CO2 24.1 ABG O2 Saturation 87 L* ABG Base Excess -5.7 L Minesh Test Acceptable Sodium 139 Potassium 5.5 H Chloride 107 Carbon Dioxide 25 Anion Gap 12.5 BUN 46 H Creatinine 4.74 H Estimated Creat Clear 30 Estimated GFR 13 L* Est GFR ( Amer) 15 L* Glucose 110 H D POC Glucose 115 H Calcium 7.3 L Magnesium Total Bilirubin AST ALT Alkaline Phosphatase Troponin I Total Protein Albumin Globulin Albumin/Globulin Ratio 03/22/18 03/22/18 03/22/18 08:40 08:40 08:40 WBC 7.6 RBC 3.76 L Hgb 11.5 L Hct 34.3 L MCV 91.3 MCH 30.5 MCHC 33.4 RDW 14.3 Plt Count 126 L MPV 8.7 Neut % (Auto) 86.0 H Lymph % (Auto) 8.3 L Patrick % (Auto) 4.1 Eos % (Auto) 1.3 Baso % (Auto) 0.3 Neut # (Auto) 6.6 Lymph # (Auto) 0.6 L Patrick # (Auto) 0.3 Eos # (Auto) 0.1 Baso # (Auto) 0.0 Total Counted 100 Neutrophils % (Manual) 89 H Lymphocytes % (Manual) 6 L Monocytes % (Manual) 3 Eosinophils % (Manual) 2 Platelet Estimate Slight decrease Specimen Source O2 % ABG pH ABG pCO2 ABG pO2 ABG HCO3 ABG Total CO2 ABG O2 Saturation ABG Base Excess Minesh Test Sodium 137 Potassium 6.3 H* Chloride 106 Carbon Dioxide 25 Anion Gap 12.3 BUN 47 H Creatinine 4.63 H Estimated Creat Clear 31 Estimated GFR 13 L* Est GFR ( Amer) 16 L* Glucose 139 H POC Glucose Calcium 7.2 L Magnesium 1.7 Total Bilirubin 0.3 AST 3 L ALT 14 Alkaline Phosphatase 38 L Troponin I Total Protein 5.7 L Albumin 2.7 L Globulin 3.0 Albumin/Globulin Ratio 0.9 L 03/22/18 03/21/18 03/21/18 06:27 21:24 21:11 WBC RBC Hgb Hct MCV MCH MCHC RDW Plt Count MPV Neut % (Auto) Lymph % (Auto) Patrick % (Auto) Eos % (Auto) Baso % (Auto) Neut # (Auto) Lymph # (Auto) [place] # (Auto) Eos # (Auto) Baso # (Auto) Total Counted Neutrophils % (Manual) Lymphocytes % (Manual) Monocytes % (Manual) Eosinophils % (Manual) Platelet Estimate Specimen Source O2 % ABG pH ABG pCO2 ABG pO2 ABG HCO3 ABG Total CO2 ABG O2 Saturation ABG Base Excess Minesh Test Sodium 139 Potassium 5.4 H Chloride 106 Carbon Dioxide 27 Anion Gap 11.4 BUN 46 H Creatinine 4.86 H Estimated Creat Clear 29 Estimated GFR 12 L* Est GFR ( Amer) 15 L* Glucose 124 H POC Glucose 132 H 133 H Calcium 7.2 L Magnesium Total Bilirubin AST ALT Alkaline Phosphatase Troponin I Total Protein Albumin Globulin Albumin/Globulin Ratio 03/21/18 03/21/18 17:18 12:50 WBC RBC Hgb Hct MCV MCH MCHC RDW Plt Count MPV Neut % (Auto) Lymph % (Auto) [place] % (Auto) Eos % (Auto) Baso % (Auto) Neut # (Auto) Lymph # (Auto) [place] # (Auto) Eos # (Auto) Baso # (Auto) Total Counted Neutrophils % (Manual) Lymphocytes % (Manual) Monocytes % (Manual) Eosinophils % (Manual) Platelet Estimate Specimen Source O2 % ABG pH ABG pCO2 ABG pO2 ABG HCO3 ABG Total CO2 ABG O2 Saturation ABG Base Excess Minesh Test Sodium Potassium Chloride Carbon Dioxide Anion Gap BUN Creatinine Estimated Creat Clear Estimated GFR Est GFR ( Amer) Glucose POC Glucose 113 H Calcium Magnesium Total Bilirubin AST ALT Alkaline Phosphatase Troponin I < 0.02 Total Protein Albumin Globulin Albumin/Globulin Ratio - Additional Comments rounded with kevin, all orders per kevin DS: Diagnosis - Discharge Diagnosis (1) CAD (coronary artery disease) Status: Acute (2) Diabetes Status: Acute (3) Chronic kidney disease Status: Acute (4) Hypertensive disorder Status: Acute (5) Tobacco dependence syndrome Status: Acute Discharge Plan - Patient Discharge Instructions ACTIVITY: Continue current activity DIET: continue same diet - Follow up Plan Follow up with: Mitch Bhatti MD [Staff Physician] - Disposition: Xfer Short-Term Hosp Home Medications: Home Medications Medication Instructions Recorded Confirmed Type amlodipine 10 mg tablet 10 mg PO DAILY 09/04/17 03/21/18 History carvedilol 25 mg tablet 25 mg PO BID 09/04/17 03/20/18 History Ergocalciferol (Vitamin D2) 50,000 unit PO WEEKLY 09/24/17 03/21/18 History [Vitamin D2] Furosemide [Furosemide 40MG tAB] 40 mg PO DAILY 09/24/17 03/20/18 History Propranolol HCl [Inderal 20mg 20 mg PO BID 09/24/17 03/21/18 History tablet] Gabapentin [Gabapentin 300mg Cap] 300 mg PO BID 01/26/18 03/21/18 History Hydralazine HCl [Hydralazine HCl 50 mg PO TID 01/26/18 03/21/18 History 25mg Tablet] Insulin Aspart [Novolog Flexpen] 0 unit SQ DAILY 01/26/18 03/21/18 History Insulin Detemir [Levemir 100 30 unit SQ DAILY 01/26/18 03/20/18 History units/mL 10mL vial] Lactobacillus Acidophilus 1 each PO DAILY 01/26/18 03/20/18 History [Acidophilus Lactobacilli] Pantoprazole Sodium [Pantoprazole 40 mg PO DAILY 01/26/18 03/20/18 History 20mg Tab] Ranolazine [Ranexa 500mg ER tablet] 1,000 mg PO BID 01/26/18 03/21/18 History Venlafaxine HCl [Venlafaxine HCl 75 mg PO DAILY 01/26/18 03/20/18 History ER] Acetaminophen 650 mg PO Q4HP PRN 03/21/18 03/21/18 History Albuterol Sulfate [Albuterol HFA 2 puffs IH Q4HP PRN 03/21/18 03/21/18 History Inhaler] Aspirin [Aspirin 81mg chewable 81 mg PO DAILY 03/21/18 03/21/18 History tab] Calcitriol [Calcitriol 0.25mcg 0.25 mcg PO MOWEFR 03/21/18 03/21/18 History Capsule] Cyclobenzaprine HCl 10 mg PO BIDP PRN 03/21/18 03/21/18 History [Cyclobenzaprine 10mg Tab] Fluticasone Propionate [Flonase 2 spr NS DAILY 03/21/18 03/21/18 History 50mcg nasal spray 16gm] Ipratropium/Albuterol Sulfate 1 puff IH Q12H 03/21/18 03/21/18 History [Combivent Respimat Inh] Isosorbide Mononitrate [Isosorbide 120 mg PO DAILY 03/21/18 03/21/18 History Mononitrate ER] Lactulose [Lactulose 10gm/15ml 15 ml PO Q12H 03/21/18 03/21/18 History Oral Soln] Nicotine [Nicotine Patch 21 mg TD DAILY 03/21/18 03/21/18 History 21mg/24hrs] Oxycodone HCl/Acetaminophen 1 tab PO TIDP PRN 03/21/18 03/21/18 History [Oxycodone W/Apap 325mg Tablet] Potassium Chloride 20 meq PO DAILY 03/21/18 03/21/18 History Rivaroxaban [Xarelto] 20 mg PO DAILY 03/21/18 03/21/18 History Tamsulosin HCl [Flomax 0.4mg 0.8 mg PO HS 03/21/18 03/21/18 History capsule] cloNIDine HCl [cloNIDine 0.1mg 0.1 mg PO BID 03/21/18 03/21/18 History Tablet] Prescriptions/Medication Reconciliation: Continue amlodipine 10 mg tablet 10 mg PO DAILY carvedilol 25 mg tablet 25 mg PO BID Furosemide [Furosemide 40MG tAB] 40 mg PO DAILY Ergocalciferol (Vitamin D2) [Vitamin D2] 50,000 unit PO WEEKLY Propranolol HCl [Inderal 20mg tablet] 20 mg PO BID Ranolazine [Ranexa 500mg ER tablet] 1,000 mg PO BID Hydralazine HCl [Hydralazine HCl 25mg Tablet] 50 mg PO TID Venlafaxine HCl [Venlafaxine HCl ER] 75 mg PO DAILY Lactobacillus Acidophilus [Acidophilus Lactobacilli] 1 each PO DAILY Insulin Detemir [Levemir 100 units/mL 10mL vial] 30 unit SQ DAILY Insulin Aspart [Novolog Flexpen] 0 unit SQ DAILY Gabapentin [Gabapentin 300mg Cap] 300 mg PO BID Isosorbide Mononitrate [Isosorbide Mononitrate ER] 120 mg PO DAILY cloNIDine HCl [cloNIDine 0.1mg Tablet] 0.1 mg PO BID Lactulose [Lactulose 10gm/15ml Oral Soln] 15 ml PO Q12H Oxycodone HCl/Acetaminophen [Oxycodone W/Apap 325mg Tablet] 1 tab PO TIDP PRN PRN Reason: PAIN Rivaroxaban [Xarelto] 20 mg PO DAILY Tamsulosin HCl [Flomax 0.4mg capsule] 0.8 mg PO HS Potassium Chloride 20 meq PO DAILY Calcitriol [Calcitriol 0.25mcg Capsule] 0.25 mcg PO MOWEFR Fluticasone Propionate [Flonase 50mcg nasal spray 16gm] 2 spr NS DAILY Cyclobenzaprine HCl [Cyclobenzaprine 10mg Tab] 10 mg PO BIDP PRN PRN Reason: Muscle Spasm Albuterol Sulfate [Albuterol HFA Inhaler] 2 puffs IH Q4HP PRN PRN Reason: Shortness Of Breath Or Wheezing Nicotine [Nicotine Patch 21mg/24hrs] 21 mg TD DAILY Pantoprazole Sodium [Pantoprazole 20mg Tab] 40 mg PO DAILY Ipratropium/Albuterol Sulfate [Combivent Respimat Inh] 1 puff IH Q12H Aspirin [Aspirin 81mg chewable tab] 81 mg PO DAILY Acetaminophen 650 mg PO Q4HP PRN PRN Reason: PAIN/FEVER
[2018-03-22 13:26] LABS: Appearance,Urine CLEAR (Clear); Bilirubin,Urine Negative (Negative); Blood, Urine Negative (Negative); Color,Urine YELLOW (Yellow); Glucose,Urine (UA) Negative (Negative); Ketones,Urine Negative (Negative); Leukocyte Esterase,Urine Negative (Negative); PH,Urine 5.5 (5.0-8.5); Protein,Urine 2+ (Negative); Specific Gravity, Urine 1.025 (1.005-1.030); Urobilinogen,Urine 0.2 EU/dl (0.2)
[2018-03-22 13:36] LABS: Amorphous Sediment,Urine 2+ /lpf; Bacteria,Urine 1+ /lpf; WBC,Urine Occasional #/hpf (0-3)
--- NOTE | 2018-03-22 14:28 | Cardiology Report ---
PROCEDURE: 2-D M-mode and color Doppler study INDICATIONS FOR THE TEST: Chest pain+ COPD+ Heart Murmur Tobacco Smoking+ Palpitations Fatigue Syncope Edema+ Hypertension+Diabetes Mellitus+ Rheumatic Fever SOB+BYRNE+Obesity+Hyperlipidemia Family History HD+ Additional History RBBB, Chronic kidney disease/renal failure, hx of bladder and prostate cancer, hx of DVT's, dizziness, hx of TIA, TDE due to lung interference PATIENT INFORMATION HEIGHT:75 WEIGHT: 293 GENDER: Male B/P: 136/77 2-D/M-MODE INTERPRETATION: 2-D MEASUREMENTS OBSERVED VALUES IN CMS Right Ventricular Dimension (RVDd) 2.8 Interventricular Septum (Thickness)(IVsd) 1.1 Left Ventricular Internal Dimensions(LVIDd) 5.4 Left Ventricular Posterior Wall (Thickness)(LVPWd) 1.1 Aortic Root 3.2 Aortic Cusp Separation 2.3 Left Atrial Dimensions (LAD) 4.5 2D 1. Left atrium is mildly enlarged, left ventricle is normal size, mild concentric left ventricular hypertrophy, visually estimated ejection fraction 55% with no obvious regional wall motion abnormality. 2. The right atrium and right ventricle are mildly enlarged with normal contractility. 3. The aortic valve is minimally thickened and fibrosed. 4. The mitral and tricuspid valve leaflets are minimally thickened. 5. The pulmonic valve is poorly visualized. 6. No significant pericardial effusion noted. DOPPLER INTERROGATION: Doppler interrogation of the aortic, mitral and tricuspid valvular presence of mild mitral and tricuspid regurgitation, tricuspid regurgitant jet velocity is insufficient for calculation of the right ventricular systolic pressure, diastolic parameters are inconclusive. CONCLUSION: 1. Mildly enlarged left atrium, normal left ventricular size, mild concentric left ventricular hypertrophy, visually estimated ejection fraction 55% with no obvious regional wall motion abnormality, diastolic parameters are inconclusive. 2. Mild mitral and tricuspid regurgitation 3. No significant pericardial effusion noted.
--- NOTE | 2018-03-22 15:05 | Progress Note ---
Acute Rapid Response Note - Subjective Date Responded: 03/22/18 Time Responded: 13:40 Provider Note: S: 62 years old white male with history of renal failure and pulmonary edema, is progressively getting short of breath was accepted at the [facility] ICU they advised for intubation prior to transfer. I Was called to intubate the patient prior to transport O: Patient on BiPAP with a saturation of 91% respiratory rate of 18 stable blood pressure and pulse. Large-size chest with mild to moderate air entry Heart regular rate and rhythm. Abdomen is obese soft nontender no guarding no rigidity. A: Impending respiratory failure secondary to pulmonary edema secondary to renal failure. Using Versed 2 mg for sedation and 20 mg etomidate IV push for for rapid sequence intubation, I was able to intubate the patient first attempt using a size 8 tube max size four 24 cm at the lip with good bilateral breath sounds, absent bubble sound at the epigastrium, good CO2 detector change. Saturation went up to 100%. Obtained a follow-up chest x-ray with a good ET tube position. Patient remained hemodynamically stable and started sedation with propofol. - Objective Findings: Vital Signs - Last 4 Hours Temperature 99.6 F 03/22/18 13:00 Temperature Source Axillary 03/22/18 13:00 Pulse Rate 87 03/22/18 13:00 Respiratory Rate 16 03/22/18 13:00 Blood Pressure 132/89 03/22/18 13:00 Blood Pressure Mean 103 03/22/18 13:00 Blood Pressure Source Automatic Cuff 03/22/18 13:00 Blood Pressure Position Supine 03/22/18 13:00 02 Sat by Pulse Oximetry 96 03/22/18 13:00 Oxygen Delivery Method 03/22/18 13:00 Oxygen Flow Rate (LPM) 2 03/22/18 11:00 Lab Results for Past 12 Hours 03/22/18 12:30: Urine Color Yellow, Urine Appearance Clear, Urine pH 5.5, Ur Specific [place] 1.025, Urine Protein 2+, Urine Glucose (UA) Negative, Urine Ketones Negative, Urine Blood Negative, Urine Nitrate Negative, Urine Bilirubin Negative, Urine Urobilinogen 0.2, Ur Leukocyte Esterase Negative, Urine RBC None , Urine WBC Occasional, Ur Squamous Epith Cells 3-5, Amorphous Sediment 2+, Urine Bacteria 1+ 03/22/18 12:02: Sodium 139, Potassium 5.5 H, Chloride 107, Carbon Dioxide 25, Anion Gap 12.5, BUN 46 H, Creatinine 4.74 H, Estimated Creat Clear 30, Estimated GFR 13 L*, Est GFR ( Amer) 15 L*, Glucose 110 H D, Calcium 7.3 L 03/22/18 11:30: POC Glucose 115 H 03/22/18 09:16: Specimen Source Right radial, O2 % 28%, ABG pH 7.20 L*, ABG pCO2 58.2 H, ABG pO2 55.5 L, ABG HCO3 22.3, ABG Total CO2 24.1, ABG O2 Saturation 87 L*, ABG Base Excess -5.7 L, Minesh Test Acceptable 03/22/18 08:40: Magnesium 1.7 03/22/18 08:40: Sodium 137, Potassium 6.3 H*, Chloride 106, Carbon Dioxide 25, Anion Gap 12.3, BUN 47 H, Creatinine 4.63 H, Estimated Creat Clear 31, Estimated GFR 13 L*, Est GFR ( Amer) 16 L*, Glucose 139 H, Calcium 7.2 L , Total Bilirubin 0.3, AST 3 L, ALT 14, Alkaline Phosphatase 38 L, Total Protein 5.7 L, Albumin 2.7 L, Globulin 3.0, Albumin/Globulin Ratio 0.9 L 03/22/18 08:40: WBC 7.6, RBC 3.76 L, Hgb 11.5 L, Hct 34.3 L, MCV 91.3, MCH 30.5 , MCHC 33.4, RDW 14.3, Plt Count 126 L, MPV 8.7, Neut % (Auto) 86.0 H, Lymph % ( Auto) 8.3 L, [place] % (Auto) 4.1, Eos % (Auto) 1.3, Baso % (Auto) 0.3, Neut # ( Auto) 6.6, Lymph # (Auto) 0.6 L, [place] # (Auto) 0.3, Eos # (Auto) 0.1, Baso # ( Auto) 0.0, Total Counted 100, Neutrophils % (Manual) 89 H, Lymphocytes % (Manual ) 6 L, Monocytes % (Manual) 3, Eosinophils % (Manual) 2, Platelet Estimate Slight decrease 03/22/18 06:27: POC Glucose 132 H Rapid Response Exam - General General appearance: alert, in no apparent distress
== END 2018-03-22 14:16 | disposition short-term general hospital (02) ==
LOC: ER 14:45 → 2ND 14:45
PROVIDERS: ADMIT Emergency Medicine; ATTEND Emergency Medicine

== ENCOUNTER 2019-05-10 14:00 | Outpatient (RCR) | payer MEDICARE, MEDICAID, SELFPAY | END 2019-05-10 14:05 | disposition home or self-care (01) | LOC: PT 14:00 | PROVIDERS: PCP Family Medicine; Visit Provider Anesthesiology Pain Medicine | DX: M47.816 Spondylosis without myelopathy or radiculopathy, lumbar region (principal); M54.16 Radiculopathy, lumbar region; M47.812 Spondylosis without myelopathy or radiculopathy, cervical region; G89.4 Chronic pain syndrome; M54.12 Radiculopathy, cervical region | CPT/HCPCS: 97010; 97014; 97035; 97110; 97140; 97163; 97164; G0283 ==

== ENCOUNTER 2021-06-24 22:49 | Emergency (ER) | payer MEDICARE, MEDICAID, SELFPAY ==
[2021-06-24 22:33] VITALS: BP 152/72; PULSE 69; RESP 24; TEMP 36.7; O2SAT 87; BMI 34.9
[2021-06-24 22:50] VITALS: BMI 34.9
--- NOTE | 2021-06-24 22:50 | XR_ITS ---
PROCEDURE INFORMATION: Exam: XR Chest Exam date and time: 06/24/2021 10:50 PM Age: 66 years old Clinical indication: Shortness of breath; Additional info: SOA TECHNIQUE: Imaging protocol: XR of the chest. Views: 1 view. COMPARISON: CR [id number] XR chest portable 03/22/2018 2:04 PM FINDINGS: Lungs: Nonspecific bibasilar opacities, favoring atelectasis or pneumonia. Pleural spaces: Probable small pleural effusion. Heart/Mediastinum: Stable cardiomediastinal silhouette. Vasculature: Stent projecting over mediastinum. Bones/joints: No acute osseous findings. IMPRESSION: Nonspecific bibasilar opacities, favoring atelectasis or pneumonia. Recommend imaging follow-up until complete resolution.
[2021-06-24 23:04] LABS: ABG Base Excess 4.2 mmol/L (-2.4-2.3); ABG HCO3 31.6 mmhg (22.0-26.0); ABG Oxygen Saturation 81 % (90-100); ABG PH 7.23 mmol/L (7.35-7.45)
[2021-06-24 23:06] LABS: Allen's Test Acceptable; Oxygen 4LPM %; Source Right Radial
[2021-06-24 23:08] LABS: ABG PCO2 76.6 mmhg (35.0-45.0); ABG PO2 49.8 mmhg (80-100)
[2021-06-24 23:13] LABS: Basophils % 0.8 % (0.1-2.0); Eosinophils # 0.1 K/mm3 (0.0-0.4); Eosinophils % 3.6 % (0.1-12.0); Hematocrit 31.7 % (42.0-52.0); Hemoglobin 9.6 g/dL (14.1-18.0); Lymphocytes # 0.7 K/mm3 (0.7-4.5); Lymphocytes % 18.8 % (10-50); Mean Corpuscular HGB Conc 30.3 g/dL (31.8-35.4); Mean Corpuscular Volume 105.4 fl (80-94); Mean Platelet Volume 9.5 fl (7.4-10.4); Monocytes # 0.2 K/mm3 (0.1-1.0); Monocytes % 4.7 % (1.7-9.3); Neutrophils # 2.7 K/mm3 (1.8-7.8); Neutrophils % 72.1 % (37.0-80.0); Platelet Count 114 K/mm3 (142-424); Red Blood Count 3.01 M/mm3 (4.60-6.20); Red Cell Distribution Width 15.9 % (11.5-17.5); White Blood Count 3.7 K/mm3 (4.8-10.8)
[2021-06-24 23:20] LABS: Alanine Aminotransferase 7 U/L (12-78); Albumin Level 3.8 g/dl (3.5-5.0); Albumin/Globulin Ratio 1.5 (1.1-1.8); Alkaline Phosphatase 39 U/L (38-126); Anion Gap 7.4 mEq/L (5-15); Aspartate Amino Transferase 12 U/L (17-59); Bilirubin,Total 0.1 mg/dl (0.2-1.3); Blood Urea Nitrogen 49 mg/dl (9-20); Calcium 8.8 mg/dl (8.4-10.2); Carbon Dioxide 39 mmol/L (22.0-30.0); Chloride 99 mmol/L (98-107); Creatinine Clearance Estimated 18 mL/min (50-200); Estimated Glomerular Filt Rate 8 ml/min (>60); GFR (African American) 9 ML/MIN (>60); Globulin 2.5 g/dL (1.3-3.2); Glucose 140 mg/dl (74-100); Lactic Acid 0.9 mmol/L (0.7-2.1); Potassium 5.4 mmoL/L (3.5-5.1); Sodium 140 mmol/L (136-145); Total Protein,Serum 6.3 g/dl (6.3-8.2)
--- NOTE | 2021-06-24 23:23 | HMH.EDWEAK ---
ED Disposition Clinical Impression: ESRD (end stage renal disease) on dialysis, Thrombocytopenia Respiratory failure with hypercapnia Qualifiers: Chronicity: unspecified Qualified Code(s): J96.92 - Respiratory failure, unspecified with hypercapnia UTI (urinary tract infection) Qualifiers: Urinary tract infection type: site unspecified Hematuria presence: without hematuria Qualified Code(s): N39.0 - Urinary tract infection, site not specified Anemia Qualifiers: Anemia type: due to chronic kidney disease Chronic kidney disease stage: on chronic dialysis Qualified Code(s): N18.6 - End stage renal disease; D63.1 - Anemia in chronic kidney disease; Z99.2 - Dependence on renal dialysis COPD (chronic obstructive pulmonary disease) Qualifiers: COPD type: unspecified COPD Qualified Code(s): J44.9 - Chronic obstructive pulmonary disease, unspecified Disposition: Xfer Short-Term Hosp Condition on Discharge: Serious Referrals: Chandana Avila MD [Primary Care Provider] - - Critical Care Critical Care Time: No Attestation: On 06/24/21, the high probability of a clinically significant, sudden or life threatening deterioration of the following system(s) required my full and direct attention, intervention and personal management. The time I documented below is in addition to time spent performing reported procedures but includes the following listed in this critical care notation. Medical Decision Making - Medical Records Medical records reviewed: Yes: I reviewed the patient's medical records. - Fabián Inquiry Pt receiving controlled substance: No Vital Signs: 06/24/21 22:33 06/25/21 00:00 06/25/21 00:31 Temperature 98.1 F Temperature Source Oral Pulse Rate 67 60 Pulse Rate [Right] 69 Respiratory Rate 24 Blood Pressure 127/60 132/55 L Blood Pressure [Right Arm] 152/72 H Blood Pressure Mean 95 99 Blood Pressure Mean [Right Arm] 98 02 Sat by Pulse Oximetry 87 L 100 97 Oxygen Delivery Method Nasal Cannula Nasal Cannula BiPAP Oxygen Flow Rate (LPM) 4 5 06/25/21 01:00 06/25/21 01:31 06/25/21 02:00 Temperature Temperature Source Pulse Rate 59 L 59 L 63 Pulse Rate [Right] Respiratory Rate Blood Pressure 145/56 H 146/57 H 137/60 Blood Pressure [Right Arm] Blood Pressure Mean 108 100 85 Blood Pressure Mean [Right Arm] 02 Sat by Pulse Oximetry 98 98 96 Oxygen Delivery Method BiPAP BiPAP BiPAP Oxygen Flow Rate (LPM) 06/25/21 02:30 06/25/21 02:33 06/25/21 03:00 Temperature Temperature Source Pulse Rate 61 60 59 L Pulse Rate [Right] Respiratory Rate 21 Blood Pressure 156/66 H 156/64 H 145/69 H Blood Pressure [Right Arm] Blood Pressure Mean 75 90 Blood Pressure Mean [Right Arm] 02 Sat by Pulse Oximetry 97 96 97 Oxygen Delivery Method BiPAP BiPAP BiPAP Oxygen Flow Rate (LPM) 06/25/21 03:30 06/25/21 04:00 06/25/21 04:30 Temperature Temperature Source Pulse Rate 60 62 61 Pulse Rate [Right] Respiratory Rate Blood Pressure 136/52 L 138/52 L 135/49 L Blood Pressure [Right Arm] Blood Pressure Mean 80 80 Blood Pressure Mean [Right Arm] 02 Sat by Pulse Oximetry 97 97 97 Oxygen Delivery Method BiPAP BiPAP BiPAP Oxygen Flow Rate (LPM) - Lab Data Lab results reviewed: Yes: I reviewed the patient's lab results. Lab Results 06/24/21 22:50: Specimen Source Right radial, O2 % 4lpm, ABG pH 7.23 L*, ABG pCO2 76.6 H, ABG pO2 49.8 L, ABG HCO3 31.6 H, ABG Total CO2 34.0 H, ABG O2 Saturation 81 L*, ABG Base Excess 4.2 H, Minesh Test Acceptable 06/24/21 23:00: WBC 3.7 L, RBC 3.01 L, Hgb 9.6 L, Hct 31.7 L, MCV 105.4 H, MCH 32.0 H, MCHC 30.3 L, RDW 15.9, Plt Count 114 L, MPV 9.5, Neut % (Auto) 72.1, Lymph % (Auto) 18.8, [place] % (Auto) 4.7, Eos % (Auto) 3.6, Baso % (Auto) 0.8, Neut # (Auto) 2.7, Lymph # (Auto) 0.7, [place] # (Auto) 0.2, Eos # (Auto) 0.1, Baso # (Auto) 0.0, ESR 52 H 06/24/21 23:00: Sodium 140, Potassium 5.4 H, Chloride 99, Carbon Diox
[2021-06-24 23:24] LABS: Microscopic, Urine URINE MICROSCOPIC (MICROSCOPIC)
[2021-06-24 23:25] LABS: C-Reactive Protein 8.9 mg/L (0-4)
[2021-06-24 23:26] LABS: Appearance,Urine CLEAR (Clear); Bilirubin,Urine Negative (Negative); Blood, Urine 3+ (Negative); Color,Urine YELLOW (Yellow); Glucose,Urine (UA) TRACE (Negative); Ketones,Urine Negative (Negative); Leukocyte Esterase,Urine Negative (Negative); Nitrate,Urine Negative (Negative); PH,Urine 7.5 (5.0-8.5); Protein,Urine 2+ (Negative); Urobilinogen,Urine 0.2 EU/dl (0.2)
--- NOTE | 2021-06-24 23:33 | ECG_ITS ---
APPROVED REPORT Exam: Resting ECG HR:64 bpm ECG Measurements Heart Rate 64 AXES NC 170 P 4 QRSd 106 QRS 10 QT 464 T 120 QTc 478 Conclusion Normal sinus rhythm T wave abnormality, consider lateral ischemia Prolonged QT Abnormal ECG Electronically signed by : Boaz Rodriguez MD 06/25/2021 09:53:11
[2021-06-24 23:38] LABS: Procalcitonin 0.493 ng/mL (0.0-2.0)
[2021-06-24 23:39] LABS: Troponin I 0.01 ng/ml (0.00-0.034)
[2021-06-24 23:49] LABS: Erythrocyte Sedimentation Rate 52 mm/hr (0-20)
[2021-06-24 23:56] LABS: RBC,Urine TNTC #/hpf (0-3); WBC,Urine TNTC #/hpf (0-3)
[2021-06-24 23:57] LABS: Bacteria,Urine 3+ /lpf
[2021-06-24 23:58] LABS: Coronavirus 19, PCR Not Detected (NotDetected); Influenza A, PCR Not Detected (NotDetected); Influenza B, PCR Not Detected (NotDetected)
--- NOTE | 2021-06-24 23:58 | PC.NURSE ---
pt's family updated. Respiratory notified to place pt on bipap
[2021-06-24 23:59] LABS: NT Pro Brain Natriuretic Pep. 117000 pg/mL (0-125)
[2021-06-25] VITALS (12 sets, daily range): BP systolic 127–161; BP diastolic 49–74; PULSE 59–68; RESP 20–22; TEMP 36.8; O2SAT 96–100
[2021-06-25 01:09] LABS: INR 1.12 (0.9-1.1); Prothrombin Time 12.6 seconds (10.1-12.5)
[2021-06-25 02:36] LABS: Troponin I < 0.01 ng/ml (0.00-0.034)
--- NOTE | 2021-06-25 02:48 | PC.NURSE ---
Calling [facility] for [facility] transfer. S/W Jie at transfer center.
--- NOTE | 2021-06-25 02:50 | PC.NURSE ---
Dr. Bhatti s/w Dr. Hughes @ [facility].
--- NOTE | 2021-06-25 02:53 | PC.NURSE ---
Dr. Bhatti spoke with Dr. Oneil at [facility]. Waiting on a call back.
--- NOTE | 2021-06-25 02:57 | PC.NURSE ---
[facility] has no bed available. [facility] has no beds available. Pt on wait list at .
--- NOTE | 2021-06-25 04:01 | PC.NURSE ---
s/w Roseline at [facility]. Pt is on the waiting list for an ICU bed. She states they only have a couple on the list and should have a bed available today . Face-sheet faxed to [phone]
[2021-06-25 05:29] LABS: ABG Base Excess 4.6 mmol/L (-2.4-2.3); ABG HCO3 32.3 mmhg (22.0-26.0); ABG Oxygen Saturation 96 % (90-100); ABG PH 7.22 mmol/L (7.35-7.45); ABG PO2 92.9 mmhg (80-100); ABG TCO2 34.8 mmhg (23-27)
[2021-06-25 05:34] LABS: Allen's Test Acceptable; Oxygen 50 %; Pressure Support 10; Source Right Radial; Vent Rate 20
[2021-06-25 05:35] LABS: ABG PCO2 80.6 mmhg (35.0-45.0)
[2021-06-25 05:37] LABS: Troponin I < 0.01 ng/ml (0.00-0.034)
== END 2021-06-25 06:33 | disposition short-term general hospital (02) ==
PROVIDERS: Emergency Provider Emergency Medicine; PCP Internal Medicine Adolescent Medicine
DX: J96.92 Respiratory failure, unspecified with hypercapnia (principal); N18.6 End stage renal disease; N30.00 Acute cystitis without hematuria; D63.1 Anemia in chronic kidney disease; D69.6 Thrombocytopenia, unspecified; J44.9 Chronic obstructive pulmonary disease, unspecified; Z99.2 Dependence on renal dialysis; I25.10 Atherosclerotic heart disease of native coronary artery without angina pectoris; E11.9 Type 2 diabetes mellitus without complications; I10 Essential (primary) hypertension; E78.5 Hyperlipidemia, unspecified; F17.210 Nicotine dependence, cigarettes, uncomplicated; Z79.899 Other long term (current) drug therapy
CPT/HCPCS: 71045; 80053; 81001; 82803; 83605; 83880; 84145; 84484; 85025; 85610; 85651; 86140; 87040; 87086; 87186; 93005; 96365; 99284; C9803; U0003; U0005

== ENCOUNTER 2021-09-10 10:27 | Emergency (ER) | payer MEDICARE, MEDICAID, SELFPAY ==
[2021-09-10] VITALS (13 sets, daily range): BP systolic 89–131; BP diastolic 32–70; PULSE 58–64; RESP 2–28; TEMP 36.4–36.6; O2SAT 50–97; BMI 33.7
--- NOTE | 2021-09-10 10:36 | XR_ITS ---
FINAL REPORT CLINICAL HISTORY: sob COMPARISON: 06/24/2021 FINDINGS: SINGLE VIEW CHEST There is cardiomegaly. An aortic stent is present. The mediastinum is unremarkable. There are bibasilar pulmonary opacities consistent with pneumonia or atelectasis. Findings are similar to prior. There is a small left effusion. There is no pneumothorax. IMPRESSION: Bibasilar opacities consistent with pneumonia or atelectasis. Reviewed, Interpreted and Dictated by Humphrey Astudillo III, MD Transcribed by Shelley Gutierrez Authenticated by Humphrey Astudillo III, MD on 09/10/2021 11:44:[address] [facility]
--- NOTE | 2021-09-10 10:37 | CT_ITS ---
FINAL REPORT CLINICAL HISTORY: fall head injury on anticoagulants COMPARISON: 08/05/2021 FINDINGS: Axial images of the head were obtained without contrast. Coronal reformatted images were also obtained. This study was performed with techniques to keep radiation doses as low as reasonably achievable (ALARA). Individualized dose reduction techniques using automated exposure control or adjustment of mA and/or kV according to the patient's size were employed. There is generalized age-appropriate atrophy. Periventricular low-attenuation areas are seen consistent with mild chronic ischemic changes. There is no evidence of intracranial hemorrhage or mass. There is no evidence of acute infarct. There is no evidence of shift of the midline structures. No skull abnormality is seen on the bone window images. There are fluid levels throughout the sinuses consistent with sinusitis. IMPRESSION: Atrophy and mild periventricular chronic ischemic changes. No acute intracranial abnormality identified. Reviewed, Interpreted and Dictated by Humphrey Astudillo III, MD Transcribed by Shelley Gutierrez Authenticated by Humphrey Astudillo III, MD on 09/10/2021 11:44:16 AM [facility]
--- NOTE | 2021-09-10 10:37 | HMH.EDGENADL ---
ED Disposition Clinical Impression: Influenza A Respiratory failure with hypoxia and hypercapnia Qualifiers: Chronicity: acute on chronic Qualified Code(s): J96.21 - Acute and chronic respiratory failure with hypoxia Anemia Qualifiers: Anemia type: unspecified type Qualified Code(s): D64.9 - Anemia, unspecified Thoracic compression fracture Qualifiers: Encounter type: initial encounter Thoracic vertebra fracture level: T3 Qualified Code(s): S22.030A - Wedge compression fracture of third thoracic vertebra, initial encounter for closed fracture Disposition: Xfer Short-Term Hosp Condition on Discharge: Serious Referrals: Chandana Avila MD [Primary Care Provider] - - Critical Care Critical Care Time: Yes Attestation: On , the high probability of a clinically significant, sudden or life threatening deterioration of the following system(s) required my full and direct attention, intervention and personal management. The time I documented below is in addition to time spent performing reported procedures but includes the following listed in this critical care notation. Total Critical Care Time: 40 Vital system(s) involved:: Respiratory Failure My critical care processes included: Assessment & monitoring of V/S, Initial and Re-exams, Data Review/Interpretation, Coordinating Care, Medication Orders and management, Documentation Medical Decision Making - Fabián Inquiry Pt receiving controlled substance: Yes Fabián was queried for this patient: Yes Risks and benefits of using a controlled substance: were not discussed with pt by me Comment: On oxycodone 10 mg as recently as June 2021. Vital Signs: 09/10/21 10:27 09/10/21 11:44 09/10/21 11:45 Temperature 97.5 F L Temperature Source Oral Pulse Rate 61 63 Pulse Rate [Radial] 64 Respiratory Rate 20 15 Blood Pressure 99/50 L 91/41 L Blood Pressure [Right Arm] 110/49 L Blood Pressure Mean [Right Arm] 69 Blood Pressure Position [Right Arm] Sitting 02 Sat by Pulse Oximetry 90 L 97 96 Oxygen Delivery Method Nasal Cannula Nasal Cannula Oxygen Flow Rate (LPM) 2 4 09/10/21 12:16 09/10/21 12:33 Temperature Temperature Source Pulse Rate 61 Pulse Rate [Radial] Respiratory Rate 13 28 H Blood Pressure 89/32 L 92/41 L Blood Pressure [Right Arm] Blood Pressure Mean [Right Arm] Blood Pressure Position [Right Arm] 02 Sat by Pulse Oximetry 96 77 L Oxygen Delivery Method Nasal Cannula Non-Rebreather Oxygen Flow Rate (LPM) 4 15 - Lab Data Lab Results 09/10/21 11:10: WBC 3.5 L, RBC 2.25 L, Hgb 6.9 L, Hct 22.5 L, MCV 100.4 H, MCH 30.6, MCHC 30.5 L, RDW 17.1, Plt Count 81 L, MPV 10.1, Neut % (Auto) 76.8, Lymph % (Auto) 16.0, [place] % (Auto) 4.9, Eos % (Auto) 1.5, Baso % (Auto) 0.7, Neut # (Auto) 2.7, Lymph # (Auto) 0.6 L, [place] # (Auto) 0.2, Eos # (Auto) 0.1, Baso # (Auto) 0.0 09/10/21 11:10: Sodium 135 L, Potassium 4.7, Chloride 97 L, Carbon Dioxide 31 H, Anion Gap 11.7, BUN 50 H, Creatinine 6.00 H, Estimated Creat Clear 21, Estimated GFR 9 L*, Est GFR ( Amer) 11 L*, Glucose 114 H, Calcium 8.2 L, Total Bilirubin 0.4, AST 16 L, ALT 9 L, Alkaline Phosphatase 41, Troponin I 0.01, Total Protein 5.8 L, Albumin 3.5, Globulin 2.3, Albumin/Globulin Ratio 1.5 09/10/21 11:10: PT 14.0 H, INR 1.26 H 09/10/21 11:10: Lactate 0.7 09/10/21 11:10: SARS-CoV-2 (PCR) Not detected, Influenza A Untype (PCR) Detected A, Influenza Type B (PCR) Not detected 09/10/21 11:10: Blood Type Confirm A Negative 09/10/21 12:25: Stool Occult Blood Negative 09/10/21 12:50: Blood Type A Negative, Crossmatch (AHG) See Detail 09/10/21 13:00: Specimen Source Right radial, O2 % 5lpm nc, ABG pH 7.14 L*, ABG pCO2 78.9 H, ABG pO2 74.3 L, ABG HCO3 26.3 H, ABG Total CO2 28.7 H, ABG O2 Saturation 91, ABG Base Excess -2.7 L, Minesh Test Patient unable Result diagrams: 09/10/21 11:10 09/10/21 11:10 Orders (Tests/Meds): ED MEDICATIONS Generic Name Dose Route Start Last Admin Trade Name
--- NOTE | 2021-09-10 10:39 | CT_ITS ---
FINAL REPORT CLINICAL HISTORY: fall, neck pain FINDINGS: Axial CT images of the cervical spine were obtained without contrast. Sagittal and coronal reformatted images were also obtained. This study was performed with techniques to keep radiation doses as low as reasonably achievable (ALARA). Individualized dose reduction techniques using automated exposure control or adjustment of mA and/or kV according to the patient's size were employed. Note is made of motion artifact on many of the images. Moderate degenerative changes are present with multilevel osteophytes. There is a presumed bone island in C2. There is no evidence of fracture or dislocation. IMPRESSION: No fracture or acute bony abnormality identified. Reviewed, Interpreted and Dictated by Humphrey Astudillo III, MD Transcribed by Shelley Gutierrez Authenticated by Humphrey Astudillo III, MD on 09/10/2021 11:44:15 AM [facility]
--- NOTE | 2021-09-10 11:06 | PC.NURSE ---
Pt returned from rad
--- NOTE | 2021-09-10 11:20 | ECG_ITS ---
APPROVED REPORT Exam: Resting ECG HR:61 bpm ECG Measurements Heart Rate 61 AXES MA 170 P 23 QRSd 122 QRS 59 QT 512 T 114 QTc 516 Conclusion SINUS RHYTHM MODERATE INTRAVENTRICULAR CONDUCTION DELAY [110+ ms QRS DURATION] ST DEVIATION AND MODERATE T-WAVE ABNORMALITY, CONSIDER LATERAL ISCHEMIA [-0.1+ mV T-WAVE IN I/aVL/V5/V6] ABNORMAL ECG UNCONFIRMED REPORT Electronically signed by : Boaz Rodriguez MD 09/11/2021 09:02:57
[2021-09-10 11:21] LABS: Coronavirus 19, PCR Not Detected (NotDetected); Influenza B, PCR Not Detected (NotDetected)
[2021-09-10 11:24] LABS: Basophils % 0.7 % (0.1-2.0); Eosinophils # 0.1 K/mm3 (0.0-0.4); Eosinophils % 1.5 % (0.1-12.0); Hematocrit 22.5 % (42.0-52.0); Lymphocytes # 0.6 K/mm3 (0.7-4.5); Mean Corpuscular HGB Conc 30.5 g/dL (31.8-35.4); Mean Corpuscular Hemoglobin 30.6 pg (27.0-31.2); Mean Corpuscular Volume 100.4 fl (80-94); Mean Platelet Volume 10.1 fl (7.4-10.4); Monocytes # 0.2 K/mm3 (0.1-1.0); Monocytes % 4.9 % (1.7-9.3); Neutrophils # 2.7 K/mm3 (1.8-7.8); Neutrophils % 76.8 % (37.0-80.0); Platelet Count 81 K/mm3 (142-424); Red Blood Count 2.25 M/mm3 (4.60-6.20); Red Cell Distribution Width 17.1 % (11.5-17.5); White Blood Count 3.5 K/mm3 (4.8-10.8)
[2021-09-10 11:27] LABS: Chloride 97 mmol/L (98-107); Potassium 4.7 mmoL/L (3.5-5.1); Sodium 135 mmol/L (136-145)
[2021-09-10 11:29] LABS: Blood Urea Nitrogen 50 mg/dl (9-20); Creatinine Clearance Estimated 21 mL/min (50-200); Estimated Glomerular Filt Rate 9 ml/min (>60); GFR (African American) 11 ML/MIN (>60)
[2021-09-10 11:30] LABS: Alanine Aminotransferase 9 U/L (12-78); Albumin Level 3.5 g/dl (3.5-5.0); Albumin/Globulin Ratio 1.5 (1.1-1.8); Alkaline Phosphatase 41 U/L (38-126); Anion Gap 11.7 mEq/L (5-15); Aspartate Amino Transferase 16 U/L (17-59); Bilirubin,Total 0.4 mg/dl (0.2-1.3); Calcium 8.2 mg/dl (8.4-10.2); Carbon Dioxide 31 mmol/L (22.0-30.0); Globulin 2.3 g/dL (1.3-3.2); Glucose 114 mg/dl (74-100); Total Protein,Serum 5.8 g/dl (6.3-8.2)
[2021-09-10 11:31] LABS: Lactic Acid 0.7 mmol/L (0.7-2.1)
[2021-09-10 11:35] LABS: INR 1.26 (0.9-1.1)
[2021-09-10 11:46] LABS: Troponin I 0.01 ng/ml (0.00-0.034)
[2021-09-10 12:04] LABS: Influenza A, PCR Detected (NotDetected)
[2021-09-10 12:07] LABS: Hemoglobin 6.9 g/dL (14.1-18.0)
--- NOTE | 2021-09-10 12:14 | CT_ITS ---
FINAL REPORT CLINICAL HISTORY: pain..fall..pain between shoulder blades FINDINGS: Axial CT images of the thoracic spine were obtained without contrast. Sagittal and coronal reformatted images were also obtained. This study was performed with techniques to keep radiation doses as low as reasonably achievable (ALARA). Individualized dose reduction techniques using automated exposure control or adjustment of mA and/or kV according to the patient's size were employed. There is an oblique nondisplaced fracture of the T3 vertebral body of uncertain age that may be acute or subacute. This is new since the prior chest CT dated June 01, 2017. There are multilevel moderate degenerative changes with osteophytes. There are multiple disc bulges. There is multilevel vacuum disc phenomenon. There are nonspecific bilateral thyroid nodules that are probably stable. There are moderate bilateral pleural effusions with bilateral lower lobe atelectasis or pneumonia. There is a partially image calcification in the right upper quadrant. IMPRESSION: Age indeterminate nondisplaced fracture of the T3 vertebral body may be acute or subacute. If indicated, MRI could further evaluate. Moderate bilateral pleural effusions with bilateral lower lobe atelectasis or pneumonia. Reviewed, Interpreted and Dictated by Humphrey Astudillo III, MD Transcribed by Dc Salvador Authenticated by Humphrey Astudillo III, MD on 09/10/2021 01:00:14 PM [facility]
[2021-09-10 12:35] LABS: Occult Blood,Stool Negative (Negative)
--- NOTE | 2021-09-10 12:35 | PC.NURSE ---
pt return from scan. o2 sat on 4L o2 at 50%. pt drowsey, pupils [place]. dr antunez made aware. new orders for narcan noted.
--- NOTE | 2021-09-10 12:52 | PC.NURSE ---
o2 sats 90% on 5L o2. pt follows commands, responds to verbal stimuli.
[2021-09-10 13:06] LABS: ABG Base Excess -2.7 mmol/L (-2.4-2.3); ABG HCO3 26.3 mmhg (22.0-26.0); ABG Oxygen Saturation 91 % (90-100); ABG PO2 74.3 mmhg (80-100); ABG TCO2 28.7 mmhg (23-27)
[2021-09-10 13:08] LABS: Oxygen 5LPM NC %
--- NOTE | 2021-09-10 13:08 | PC.NURSE ---
rt called with abg results notified ER
[2021-09-10 13:09] LABS: ABG PCO2 78.9 mmhg (35.0-45.0); ABG PH 7.14 mmol/L (7.35-7.45); Allen's Test Patient Unable; Source Right Radial
--- NOTE | 2021-09-10 13:12 | PC.NURSE ---
notified RT, ER MD wants pt placed on bipap
--- NOTE | 2021-09-10 13:17 | PC.NURSE ---
called and spoke with [id number]. she states that it is ok to transfer pt to [facility]
--- NOTE | 2021-09-10 13:18 | PC.NURSE ---
Calling [facility] at this time for transfer.
--- NOTE | 2021-09-10 13:24 | PC.NURSE ---
Access center at [facility] advised it would be several days waiting on a bed but would have the hospitalist call us back. Going to contact other hospitals.
--- NOTE | 2021-09-10 13:31 | PC.NURSE ---
Dr Blackmon speaking with hospitalist at [facility]
--- NOTE | 2021-09-10 13:55 | PC.NURSE ---
spoke with [facility] regarding tamiflu. states meds should be given to pt after he gets dialysis. aware. will hold medication. info relayed to neda flanagan [facility].
--- NOTE | 2021-09-10 13:56 | PC.NURSE ---
report called to [facility], neda flanagan
--- NOTE | 2021-09-10 13:57 | PC.NURSE ---
wilder from lab called stating pts units of blood are ready, notified ER MD of units being ready r/t pt is soon to be transferred (nurse just gave report), ER MD was given recent set of vitals, states since vitals are stable proceed with transfer, not to transfuse at this time
--- NOTE | 2021-09-10 13:58 | PC.NURSE ---
[facility] notified of transfer
--- NOTE | 2021-09-10 14:12 | PC.NURSE ---
called and spoke with pt's sister in law, ok to transfer pt to [facility]
--- NOTE | 2021-09-10 14:19 | PC.NURSE ---
report to [facility]
--- NOTE | 2021-09-10 14:31 | PC.NURSE ---
pt transferred to [facility]
== END 2021-09-10 14:36 | disposition short-term general hospital (02) ==
PROVIDERS: Emergency Provider Emergency Medicine; PCP Internal Medicine Adolescent Medicine
DX: J10.1 Influenza due to other identified influenza virus with other respiratory manifestations (principal); S22.030A Wedge compression fracture of third thoracic vertebra, initial encounter for closed fracture; J96.21 Acute and chronic respiratory failure with hypoxia; W01.0XXA Fall on same level from slipping, tripping and stumbling without subsequent striking against object, initial encounter; Y92.019 Unspecified place in single-family (private) house as the place of occurrence of the external cause; I25.10 Atherosclerotic heart disease of native coronary artery without angina pectoris; J44.9 Chronic obstructive pulmonary disease, unspecified; E11.9 Type 2 diabetes mellitus without complications; E78.5 Hyperlipidemia, unspecified; I10 Essential (primary) hypertension; F17.210 Nicotine dependence, cigarettes, uncomplicated; Z99.81 Dependence on supplemental oxygen; Z79.899 Other long term (current) drug therapy
CPT/HCPCS: 36415; 70450; 71045; 72125; 72128; 80053; 82272; 82803; 83605; 84484; 85025; 85610; 86850; 87040; 93005; 96374; 96375; 99285; C9803; G0328; J2405; U0003; U0005